=== PATIENT | female | born 1990 | race Caucasian/White ===

== ENCOUNTER 2020-12-26 19:21 | Emergency (ER) | payer BC ==
--- OUTSIDE RECORDS SUMMARY | 2020-12-26 19:25 | XMS REPORT | Continuity of Care Document ---
:1990 Author Organization [facility] t Address [address] [place] [address] Care Team Providers Name Role Phone Unavailable Unavailable Unavailable Payers Payer Name Policy Type Policy Number Effective Date Expiration Date S ource Problems This patient has no known problems. Allergies, Adverse Reactions, Alerts Allergy Allergy Status Severity Reaction(s) Onset Inactive Treating Comm ents Source Name Type Date Date Clinician clindamy DA Active [facility] des 1-20 Clear 00:00: [address] Medications This patient has no known medications. Procedures This patient has no known procedures. Results Test Description Test Time Test Comments Results Result Comments Source GLUCOSE BEDSIDE TESTING 2018-09-02 08:44:00 Test Item Value Reference Range Interpretation Comme nts GLUCOSE BEDSIDE TESTING (test code = GLUBED) 81 mg/dL 70-110 N COMPREHENSIVE METABOLIC [id number] 05:15:00 Test Item Value Reference Range Interpretation Comments SODIUM (test code = NA) 141 mmol/L 134-147 N POTASSIUM (test code = 3.8 mmol/L 3.4-5.0 N K) CHLORIDE (test code = 111 mmol/L 100-108 H CL) CARBON DIOXIDE (test 24 mmol/L 21-32 N code = CO2) ANION GAP (test code = 6.0 GAP calc 4.0-15.0 N GAP) GLUCOSE (test code = 122 MG/DL 70-110 H GLU) BLOOD UREA NITROGEN 10 MG/DL 7-18 N (test code = BUN) GLOMERULAR FILTRATION >=60 max estimate >60 RATE (test code = GFR) estGFR CREATININE (test code = 0.7 MG/DL 0.6-1.0 N CREAT) TOTAL PROTEIN (test code 6.1 G/DL 6.4-8.2 L = PROT) ALBUMIN (test code = 3.0 G/DL 3.4-5.0 L ALB) GLOBULIN (test code = 3.1 GM/dL GLOB) ALBUMIN/GLOBULIN RATIO 1.0 RATIO 1.2-2.2 L (test code = A/G) CALCIUM (test code = CA) 7.6 MG/DL 8.5-10.1 L BILIRUBIN TOTAL (test <0.10 MG/DL 0.2-1.2 L code = BILT) SGOT/AST (test code = 5 Unit/L 15-37 L AST) SGPT/ALT (test code = 22 Unit/L 12-78 N ALT) ALKALINE PHOSPHATASE 75 Unit/L 45-117 N TOTAL (test code = ALKP) [id number] 05:15:00 Test Item Value Reference Range Interpretation Comments PHOSPHOROUS (test code = PHOS) 3.2 MG/DL 2.5-4.9 N [id number] 05:15:00 Test Item Value Reference Range Interpretation Comments MAGNESIUM (test code = MAG) 1.8 MG/DL 1.8-2.4 N CBC W/AUTO [id number] 05:09:00 Test Item Value Reference Range Interpretation Comments WHITE BLOOD CELL (test code = 10.3 K/mm3 3.5-11.0 N WBC) RED BLOOD CELL (test code = RBC) 4.24 M/mm3 4.70-6.10 L HEMOGLOBIN (test code = HGB) 11.7 G/DL 10.4-14.9 N HEMATOCRIT (test code = HCT) 35.8 % 31.5-44.1 N MEAN CELL VOLUME (test code = 84.4 Fl 84.5-98.6 L MCV) MEAN CELL HGB (test code = MCH) 27.6 pg 27.0-34.2 N MEAN CELL HGB CONCETRATION (test 32.7 G/DL 31.5-34.0 N code = MCHC) RED CELL DISTRIBUTION WIDTH (test 15.8 SD 11.5-14.5 H code = RDW) PLATELET COUNT (test code = PLT) 204.0 K/mm3 150-450 N MEAN PLATELET VOLUME (test code = 10.80 fL 7.0-10.5 H MPV) NEUTROPHIL % (test code = NT%) 43.1 % 40-76 LYMPHOCYTE % (test code = LY%) 48.2 % 20.5-51.1 N MONOCYTE % (test code = MO%) 7.1 % 1.7-9.3 N EOSINOPHIL % (test code = EO%) 1.5 % 0.0-6.0 N BASOPHIL % (test code = BA%) 0.1 % 0.0-2.0 N NEUTROPHIL # (test code = NT#) 4.42 K/mm3 1.8-7.6 N LYMPHOCYTE # (test code = LY#) 4.9 K/mm3 0.6-3.2 H MONOCYTE # (test code = MO#) 0.7 K/mm3 0.3-1.1 N EOSINOPHIL # (test code = EO#) 0.2 K/mm3 0.0-0.4 N BASOPHIL # (test code = BA#) 0.0 K/mm3 0.0-0.1 N MANUAL DIFF REQUIRED (test code = NO DIFF/SCN CRITERIA MDIFF) GLUCOSE BEDSIDE [id number] 20:48:00 Test Item Value Reference Range Interpretation Comments GLUCOSE BEDSIDE TESTING (test code 145 mg/dL 70-110 H = GLUBED) GLUCOSE BEDSIDE [id number] 12:21:00 Test Item Value Reference Range Interpretation Comments GLUCOSE BEDSIDE TESTING (test code = 94 mg/dL 70-110 N GLUBED) GLUCOSE BEDSIDE [id number] 08:33:00 Test Item Value Reference Range Interpretation Comments GLUCOSE BEDSIDE TESTING (test code 108 mg/dL 70-110 N = GLUBED) GLYCOSYLATED HEMOGLOBIN [id number] 05:51:00 Test Item Value Reference Range Interpretation Comments GLYCOSYLATED HEMOGLOBIN (HA1C) 5.9 % A1C 4.2-6.3 N (test code = GLYHGB) ESTIMATED AVERAGE GLUCOSE (test 123 MG/DLest code = EAG) CBC W/AUTO [id number] 05:43:00 Test Item Value Reference Range Interpretation Comments WHITE BLOOD CELL (test 14.6 K/mm3 3.5-11.0 H code = WBC) RED BLOOD CELL (test 4.37 M/mm3 4.70-6.10 L code = RBC) HEMOGLOBIN (test code 12.4 G/DL 10.4-14.9 N = HGB) HEMATOCRIT (test code 36.4 % 31.5-44.1 N = HCT) MEAN CELL VOLUME (test 83.3 Fl 84.5-98.6 L code = MCV) MEAN CELL HGB (test 28.4 pg 27.0-34.2 N code = MCH) MEAN CELL HGB 34.1 G/DL 31.5-34.0 H CONCETRATION (test code = MCHC) RED CELL DISTRIBUTION 15.1 SD 11.5-14.5 H WIDTH (test code = RDW) PLATELET COUNT (test 254.0 K/mm3 150-450 N code = PLT) MEAN PLATELET VOLUME 10.70 fL 7.0-10.5 H (test code = MPV) NEUTROPHIL % (test 78.1 % 40-76 H code = NT%) LYMPHOCYTE % (test 16.7 % 20.5-51.1 L code = LY%) MONOCYTE % (test code 5.1 % 1.7-9.3 N = MO%) EOSINOPHIL % (test 0.0 % 0.0-6.0 N code = EO%) BASOPHIL % (test code 0.1 % 0.0-2.0 N = BA%) NEUTROPHIL # (test 11.43 K/mm3 1.8-7.6 H code = NT#) LYMPHOCYTE # (test 2.4 K/mm3 0.6-3.2 N code = LY#) MONOCYTE # (test code 0.8 K/mm3 0.3-1.1 N = MO#) EOSINOPHIL # (test 0.0 K/mm3 0.0-0.4 N code = EO#) BASOPHIL # (test code 0.0 K/mm3 0.0-0.1 N = BA#) MANUAL DIFF REQUIRED NO DIFF/SCN CRITERIA SLIDE R PAOLAW (test code = MDIFF) CONSISTA NT WITH AUTO DIFFERENTIAL. COMPREHENSIVE METABOLIC [id number] 05:27:00 Test Item Value Reference Range Interpretation Comments SODIUM (test code = NA) 142 mmol/L 134-147 N POTASSIUM (test code = 4.0 mmol/L 3.4-5.0 N K) CHLORIDE (test code = 110 mmol/L 100-108 H CL) CARBON DIOXIDE (test 22 mmol/L 21-32 N code = CO2) ANION GAP (test code = 10.0 GAP calc 4.0-15.0 N GAP) GLUCOSE (test code = 143 MG/DL 70-110 H GLU) BLOOD UREA NITROGEN 7 MG/DL 7-18 N (test code = BUN) GLOMERULAR FILTRATION >=60 max estimate >60 RATE (test code = GFR) estGFR CREATININE (test code = 0.7 MG/DL 0.6-1.0 N CREAT) TOTAL PROTEIN (test code 6.7 G/DL 6.4-8.2 N = PROT) ALBUMIN (test code = 3.2 G/DL 3.4-5.0 L ALB) GLOBULIN (test code = 3.5 GM/dL GLOB) ALBUMIN/GLOBULIN RATIO 0.9 RATIO 1.2-2.2 L (test code = A/G) CALCIUM (test code = CA) 7.9 MG/DL 8.5-10.1 L BILIRUBIN TOTAL (test 0.20 MG/DL 0.2-1.2 N code = BILT) SGOT/AST (test code = 8 Unit/L 15-37 L AST) SGPT/ALT (test code = 29 Unit/L 12-78 N ALT) ALKALINE PHOSPHATASE 81 Unit/L 45-117 N TOTAL (test code = ALKP) LIPID PROFILE (CORONARY RISK)2018 05:27:00 Test Item Value Reference Range Interpretation Comments TRIGLYCERIDES (test code = TRIG) 89 MG/DL 0-150 N CHOLESTEROL (test code = CHOL) 147 MG/DL 133-200 N CHOLESTEROL/HDL RATIO (test code = 3.00 RATIO >0 CHOLHDL) HDL CHOLESTEROL (test code = HDL) 49 MG/DL 40-59 N NON-HDL CHOLESTEROL (test code = 98 mg/dL <130 NHDL) LIPOPROTEIN LDL (test code = LDL) 90 MG/DL 0-129 N LDL/HDL (test code = LDL/HDL) 1.83 Ratio 1.48-3.22 Avg N [id number] 05:27:00 Test Item Value Reference Range Interpretation Comments PHOSPHOROUS (test code = PHOS) 2.8 MG/DL 2.5-4.9 N RULE OUT NH [id number] 05:27:00 Test Item Value Reference Range Interpretation Comments CREATINE KINASE 49 Unit/L 26-192 N (CK) (test code = CK) TROPONIN-I (test < 0.015 NG/ML 0.000-0.045 N Negative: </= 0.045 code = TROPI) Positive: >/= 0.046 Correlation wit h serial results, other cardiac markers , and clinical findin gs is necessary to de termine the clinical significance of this result. Quantit ative results using different methodologies s hould not be compared to one another as nume rical results may eric yby method. [id number] 05:27:00 Test Item Value Reference Range Interpretation Comments LIPASE (test code = LIP) 109 Unit/L 114-286 L [id number] 05:27:00 Test Item Value Reference Range Interpretation Comments MAGNESIUM (test code = MAG) 2.0 MG/DL 1.8-2.4 N CBC W/AUTO [id number] 05:10:00 Test Item Value Reference Range Interpretation Comments WHITE BLOOD CELL (test code = 14.6 K/mm3 3.5-11.0 H WBC) RED BLOOD CELL (test code = RBC) 4.37 M/mm3 4.70-6.10 L HEMOGLOBIN (test code = HGB) 12.4 G/DL 10.4-14.9 N HEMATOCRIT (test code = HCT) 36.4 % 31.5-44.1 N MEAN CELL VOLUME (test code = 83.3 Fl 84.5-98.6 L MCV) MEAN CELL HGB (test code = MCH) 28.4 pg 27.0-34.2 N MEAN CELL HGB CONCETRATION (test 34.1 G/DL 31.5-34.0 H code = MCHC) RED CELL DISTRIBUTION WIDTH (test 15.1 SD 11.5-14.5 H code = RDW) PLATELET COUNT (test code = PLT) 254.0 K/mm3 150-450 N MEAN PLATELET VOLUME (test code = 10.70 fL 7.0-10.5 H MPV) NEUTROPHIL % (test code = NT%) 78.1 % 40-76 H LYMPHOCYTE % (test code = LY%) 16.7 % 20.5-51.1 L MONOCYTE % (test code = MO%) 5.1 % 1.7-9.3 N EOSINOPHIL % (test code = EO%) 0.0 % 0.0-6.0 N BASOPHIL % (test code = BA%) 0.1 % 0.0-2.0 N NEUTROPHIL # (test code = NT#) 11.43 K/mm3 1.8-7.6 H LYMPHOCYTE # (test code = LY#) 2.4 K/mm3 0.6-3.2 N MONOCYTE # (test code = MO#) 0.8 K/mm3 0.3-1.1 N EOSINOPHIL # (test code = EO#) 0.0 K/mm3 0.0-0.4 N BASOPHIL # (test code = BA#) 0.0 K/mm3 0.0-0.1 N MANUAL DIFF REQUIRED (test code = DIFF/SCN CRITERIA MDIFF)
[2020-12-26 22:30] LABS: Urine Blood Negative (Negative); Urine Glucose Negative (Negative); Urine Protein Negative (Negative); Urine Specific Gravity >=1.030 (1.005-1.030)
[2020-12-26 23:49] LABS: BUN Blood Urea Nitrogen 9 mg/dL (7-18); Bicarbonate 23 mmol/L (21-32); Glucose Level 85 mg/dL (74-106); HCG, Quantitative 11732 mIU/mL (1-3); Potassium 3.6 mmol/L (3.5-5.1); Sodium Level 137 mmol/L (136-145)
[2020-12-27 00:03] LABS: Absolute Lymphocytes (CBC) 3.9 K/uL (0.7-4.9); Basophils % 0.3 % (0-1.3); Hematocrit 38.2 % (36.0-45.0); Lymphocytes % 37.3 % (15.3-44.8); MPV 9.6 fL (7.6-11.3); RBC Red Blood Cell Count 4.42 M/uL (3.86-4.86)
[2020-12-27 00:41] LABS: Urine Specific Gravity/Preg >1.030 (1.005-1.030)
--- NOTE | 2020-12-27 01:50 | ER ---
Nurse's Notes [facility] Name: Rasheeda Wilburn Age: 30 yrs Sex: Female : 1990 Arrival Date: 12/26/2020 Time: 19:23 Bed 13 Private MD: Diagnosis: ! st trimester intrauterine . Low back pain Presentation: 12/26 19:30 Chief complaint: Patient states: Had US Sunday12/24/2020. It says I had a gestational ca1 sac but no pole, gestational age undetermined. this morning, I started having sharp pain on the R lower back. Called my OB and he told me that he wanted me to get checked out for a concern of ectopic . Coronavirus screen: Client denies travel out of the [place] in the last 14 days. At this time, the client does not indicate any symptoms associated with coronavirus-19. Ebola Screen: Patient negative for fever greater than or equal to 101.5 degrees Fahrenheit, and additional compatible Ebola Virus Disease symptoms Patient denies exposure to infectious person. Patient denies travel to an Ebola-affected area in the 21 days before illness onset. No symptoms or risks identified at this time. Initial Sepsis Screen: Does the patient meet any 2 criteria? No. Patient's initial sepsis screen is negative. Does the patient have a suspected source of infection? No. Patient's initial sepsis screen is negative. Risk Assessment: Do you want to hurt yourself or someone else? Patient reports no desire to harm self or others. Onset of symptoms was December 26, 2020. 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 - Social history:: Smoking status: Patient denies any tobacco usage or history of. Screenin:15 Abuse screen: Denies threats or abuse. Denies injuries from another. Nutritional aj1 screening: No deficits noted. Tuberculosis screening: No symptoms or risk factors identified. 12/27 02:07 Fall Risk None identified. aj1 Assessment: 12/26 21:15 General: Appears in no apparent distress. uncomfortable, Behavior is calm, cooperative, aj1 appropriate for age. Pain: Complains of pain in right low back Pain does not radiate. Pain currently is 8 out of 10 on a pain scale. Quality of pain is described as aching, sharp, Is continuous. Neuro: Level of Consciousness is awake, alert, obeys commands, Oriented to person, place, time, situation. Cardiovascular: Patient's skin is warm and dry. Respiratory: Airway is patent Respiratory effort is even, unlabored, Respiratory pattern is regular, symmetrical. GI: Patient currently denies abdominal pain. : Denies vaginal bleeding. EENT: No signs and/or symptoms were reported regarding the EENT system. Derm: No signs and/or symptoms reported regarding the dermatologic system. Skin is pink, warm \T\ dry. normal. Musculoskeletal: No signs and/or symptoms reported regarding the musculoskeletal system. Circulation, motion, and sensation intact. 21:45 Reassessment: US at bedside, will do blood work as soon as ultrasound exam is complete. aj1 22:34 Reassessment: Patient appears in no apparent distress at this time. No changes from aj1 previously documented assessment. Patient and/or family updated on plan of care and expected duration. Pain level reassessed. Patient is alert, oriented x 3, equal unlabored respirations, skin warm/dry/pink. 23:35 Reassessment: Patient appears in no apparent distress at this time. No changes from aj1 previously documented assessment. Patient and/or family updated on plan of care and expected duration. Pain level reassessed. Patient is alert, oriented x 3, equal unlabored respirations, skin warm/dry/pink. 12/27 00:35 Reassessment: Patient appears in no apparent distress at this time. No changes from aj1 previously documented assessment. Patient and/or family updated on plan of care and expected duration. Pain level reassessed. Patient is alert, oriented x 3, equal unlabored respirations, skin warm/dry/pink. 01:35 Reassessment: Patient appears in no apparent distress at this time. No changes from aj1 previously documented assessment. Patient and/or family updated on plan of care and expected duration. Pain level reassessed. Patient is alert, oriented x 3, equal unlabored respirations, skin warm/dry/pink. Vital Signs: 12/26 19:30 BP 141 / 87; Pulse 91; Resp 16 S; Temp 97.3(TE); Pulse Ox 100% on R/A; Weight 117.93 kg ca1 (R); Height 5 ft. 0 in. (152.40 cm) (R); Pain 6/10; 23:54 BP 132 / 75; Pulse 88; Resp 18; Pulse Ox 99% on R/A; aj1 19:30 Body Mass Index 50.78 (117.93 kg, 152.40 cm) ca1 ED Course: 19:23 Patient arrived in ED. am4 19:34 Triage completed. ca1 19:34 Arm band placed on right wrist. ca1 21:15 Patient has correct armband on for positive identification. Bed in low position. Call aj1 light in reach. 21:15 No provider procedures requiring assistance completed. aj1 21:26 Jose Novak MD is Attending Physician. pkl 21:52 Jasmin Reed RN is Primary Nurse. aj1 22:21 US Transvaginal Ob In Process Unspecified. EDMS 22:24 Ultrasound completed. Patient tolerated well. Notified ED Physician veronique. sg3 22:33 Initial lab(s) drawn, by me, sent to lab. aj1 12/27 01:49 Ariel Suarez MD is Referral Physician. pkl 02:07 Patient did not have IV access during this emergency room visit. aj1 Administered Medications: 02:06 Drug: Tylenol 1000 mg Route: PO; aj1 02:06 Follow up: Response: No adverse reaction aj1 Outcome: 01:50 Discharge ordered by . pkl 02:07 Discharged to home ambulatory. aj1 02:07 Condition: good 02:07 Discharge instructions given to patient, Instructed on discharge instructions, follow up and referral plans. Demonstrated understanding of instructions, follow-up care. 02:08 Patient left the ED. aj1 Signatures: Dispatcher [employer] EDMS Jasmin Reed RN RN aj1 Jose Novak MD MD pkl Blanka Luke sg3 Yola Stewart RN RN ca1 Ernestine Braxton am4
--- NOTE | 2020-12-27 01:50 | EDPHYS ---
Physician Documentation [facility] Name: Rasheeda Wilburn Age: 30 yrs Sex: Female : 1990 Arrival Date: 12/26/2020 Time: 19:23 Bed 13 Private MD: ED Physician Jose Novak HPI: 12/26 21:37 This 30 yrs old Female presents to ER via Ambulatory with complaints of pkl Possible ectopic . 21:37 The patient presents with pelvic pain, that is located in/on the lower abdomen and pkl back. Onset: The symptoms/episode began/occurred 3 day(s) ago. Had pelvic US done 12/24/20 showed gestation sac but no pole. Patient talked to Dr. Erick morin, was told to come to ER to R/O ectopic . 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 - Social history:: Smoking status: Patient denies any tobacco usage or history of. ROS: 21:37 Positive for pelvic pain, back pain, Negative for vaginal bleeding. pkl 21:37 Eyes: Negative for injury, pain, redness, and discharge, ENT: Negative for injury, pain, and discharge, Neck: Negative for injury, pain, and swelling, Cardiovascular: Negative for chest pain, palpitations, and edema, Respiratory: Negative for shortness of breath, cough, wheezing, and pleuritic chest pain. 21:37 Abdomen/GI: Positive for abdominal pain, of the suprapubic area. 21:37 Back: Positive for of the low back pain. 21:37 MS/extremity: Negative for acute changes. 21:37 Skin: Negative for rash. 21:37 Neuro: Negative for altered mental status. Exam: 21:37 Head/Face: Normocephalic, atraumatic. Eyes: Pupils equal round and reactive to light, pkl extra-ocular motions intact. Lids and lashes normal. Conjunctiva and sclera are non-icteric and not injected. Cornea within normal limits. Periorbital areas with no swelling, redness, or edema. ENT: Nares patent. No nasal discharge, no septal abnormalities noted. Tympanic membranes are normal and external auditory canals are clear. Oropharynx with no redness, swelling, or masses, exudates, or evidence of obstruction, uvula midline. Mucous membranes moist. Neck: Trachea midline, no thyromegaly or masses palpated, and no cervical lymphadenopathy. Supple, full range of motion without nuchal rigidity, or vertebral point tenderness. No Meningismus. Chest/axilla: Normal chest wall appearance and motion. Nontender with no deformity. No lesions are appreciated. Cardiovascular: Regular rate and rhythm with a normal S1 and S2. No gallops, murmurs, or rubs. Normal PMI, no JVD. No pulse deficits. Respiratory: Lungs have equal breath sounds bilaterally, clear to auscultation and percussion. No rales, rhonchi or wheezes noted. No increased work of breathing, no retractions or nasal flaring. Abdomen/GI: Soft, non-tender, with normal bowel sounds. No distension or tympany. No guarding or rebound. No evidence of tenderness throughout. Back: No spinal tenderness. No costovertebral tenderness. Full range of motion. 21:37 : Exam negative for Pelvic Exam: the exam is deferred. 21:37 Musculoskeletal/extremity: Exam is negative for acute changes. 21:37 Skin: Exam negative for rash. 21:37 Neuro: Orientation: is normal, Mentation: is normal, Cranial nerves: grossly normal, Motor: is normal. Vital Signs: 19:30 BP 141 / 87; Pulse 91; Resp 16 S; Temp 97.3(TE); Pulse Ox 100% on R/A; Weight 117.93 kg ca1 (R); Height 5 ft. 0 in. (152.40 cm) (R); Pain 6/10; 23:54 BP 132 / 75; Pulse 88; Resp 18; Pulse Ox 99% on R/A; aj1 19:30 Body Mass Index 50.78 (117.93 kg, 152.40 cm) ca1 MDM: 21:26 Patient medically screened. pkl 12/27 01:45 Data reviewed: vital signs, nurses notes, lab test result(s), radiologic studies, pkl ultrasound. ED course: Discussed lab and US results with patent. Advised to follow up in 1 to 2 days. Patient understood instructions. 12/26 21:36 Order name: Abo/rh Typing; Complete Time: :44 pkl 12/26 21:36 Order name: Basic Metabolic Panel; Complete Time: :44 pkl 12/26 21:36 Order name: CBC with Diff; Complete Time: 44 pkl 12/26 21:36 Order name: HCG-Quantitative; Complete Time: :44 pkl 12/26 22:29 Order name: Urine Dipstick-Ancillary EDMS 12/26 21:36 Order name: IV Saline Lock; Complete Time: 22:33 pkl 12/26 21:36 Order name: Labs collected and sent; Complete Time: 22:33 pkl 12/26 21:36 Order name: NPO; Complete Time: 22:33 pkl 12/26 21:36 Order name: Urine Dipstick-Ancillary (obtain specimen); Complete Time: 22:33 pkl 12/26 21:36 Order name: US Transvaginal Ob pkl 12/26 23:48 Order name: Urine --Ancillary (enter results); Complete Time: :44 mw2 Administered Medications: 02:06 Drug: Tylenol 1000 mg Route: PO; aj1 02:06 Follow up: Response: No adverse reaction aj1 Disposition: 12/27/20 01:50 Discharged to Home. Impression: ! st trimester intrauterine . Low back pain. - Condition is Stable. - Medication Reconciliation Form, Thank You Letter, Antibiotic Education, Prescription Opioid Use form. - Follow up: Ariel Suarez MD; When: 1 - 2 days; Reason: Re-evaluation by your physician. - Problem is new. - Symptoms have improved. Signatures: Dispatcher [employer] EDJasmin Zapata RN RN aj1 Jose Novak MD MD pkl Acob, Cheryl, RN RN ca1 Corrections: (The following items were deleted from the chart) 12/26 23:48 22:41 URINE --ANCILLARY+UC.LAB.BRZ ordered. EDMS EDMS 23:48 23:46 URINE --ANCILLARY+UC.LAB.BRZ reviewed. pkl EDMS 12/27 02:08 01:50 12/27/2020 01:50 Discharged to Home. Impression: ! st trimester intrauterine aj1 . Low back pain. Condition is Stable. Forms are Medication Reconciliation Form, Thank You Letter, Antibiotic Education, Prescription Opioid Use. Follow up: Ariel Suarez; When: 1 - 2 days; Reason: Re-evaluation by your physician. Problem is new. Symptoms have improved. pkl
[2020-12-27] MEDS ORDERED: ACETAMINOPHEN 500 MG TAB ONE (02:17)
[2020-12-27 02:52] VITALS: BP 132/75; O2SAT 99
[2020-12-27 03:00] VITALS: TEMP 97.3
--- NOTE | 2020-12-27 11:09 | RAD REPORT ---
EXAM DESCRIPTION: US - Transvaginal OB - 12/26/2020 10:22 pm CLINICAL HISTORY: with pelvic pain COMPARISON: December 24, 2020 FINDINGS: The uterus 12 x 6 x 5 centimeters. A gestational sac is present within the endometrium. W ithin this is an embryo with a crown-rump length 4 millimeters. Cardiac activity 80 beats per minute. A 4 x 1 centimeter subchorionic bleed The right ovary is normal in size and echotexture. The left ovary was not visualized secondary to ove rlying bowel gas. The right and left adnexum unremarkable.. No significant free fluid IMPRESSION: Single live intrauterine with an estimated gestational age 6 weeks 1 day JONO 0 08/20/2021 Cardiac activity is diminished at 80 beats per minute. 4 x 1 centimeter subchorionic bleed
== END 2020-12-27 02:08 | disposition home or self-care (01) ==
LOC: ER 19:21
DX: O99.891 Other specified diseases and conditions complicating pregnancy (principal); R10.2 Pelvic and perineal pain; M54.5 Low back pain; Z3A.01 Less than 8 weeks gestation of pregnancy; O99.281 Endocrine, nutritional and metabolic diseases complicating pregnancy, first trimester; E28.2 Polycystic ovarian syndrome
CPT/HCPCS: 36415; 76817; 80048; 81003; 81025; 84702; 85025; 86900; 86901; 99283

== ENCOUNTER 2021-02-04 21:20 | Emergency (ER) | payer BC ==
--- OUTSIDE RECORDS SUMMARY | 2021-02-04 21:23 | XMS REPORT | Continuity of Care Document ---
:1990 Author Organization [facility] t Address [address] [place] [address] Care Team Providers Name Role Phone Unavailable Unavailable Unavailable Payers Payer Name Policy Type Policy Number Effective Date Expiration Date S ource Problems This patient has no known problems. Allergies, Adverse Reactions, Alerts Allergy Allergy Status Severity Reaction(s) Onset Inactive Treating Comm ents Source Name Type Date Date Clinician clindamy DA Active [facility] des 1-20 Clear 00:00: [address] Medications This patient has no known medications. Procedures This patient has no known procedures. Results Test Description Test Time Test Comments Results Result Comments Source GLUCOSE BEDSIDE TESTING 2018-09-02 08:44:00 Test Item Value Reference Range Interpretation Comme nts GLUCOSE BEDSIDE TESTING (test code = GLUBED) 81 mg/dL 70-110 N COMPREHENSIVE METABOLIC [id number] 05:15:00 Test Item Value Reference Range Interpretation [...] 45-117 N TOTAL (test code = ALKP) [id number] 05:15:00 Test Item Value Reference Range Interpretation Comments PHOSPHOROUS (test code = PHOS) 3.2 MG/DL 2.5-4.9 N [id number] 05:15:00 Test Item Value Reference Range Interpretation Comments MAGNESIUM (test code = MAG) 1.8 MG/DL 1.8-2.4 N CBC W/AUTO [id number] 05:09:00 Test Item Value Reference Range Interpretation [...] = NO DIFF/SCN CRITERIA MDIFF) GLUCOSE BEDSIDE [id number] 20:48:00 Test Item Value Reference Range Interpretation Comments GLUCOSE BEDSIDE TESTING (test code 145 mg/dL 70-110 H = GLUBED) GLUCOSE BEDSIDE [id number] 12:21:00 Test Item Value Reference Range Interpretation Comments GLUCOSE BEDSIDE TESTING (test code = 94 mg/dL 70-110 N GLUBED) GLUCOSE BEDSIDE [id number] 08:33:00 Test Item Value Reference Range Interpretation Comments GLUCOSE BEDSIDE TESTING (test code 108 mg/dL 70-110 N = GLUBED) GLYCOSYLATED HEMOGLOBIN [id number] 05:51:00 Test Item Value Reference Range Interpretation Comments GLYCOSYLATED HEMOGLOBIN (HA1C) 5.9 % A1C 4.2-6.3 N (test code = GLYHGB) ESTIMATED AVERAGE GLUCOSE (test 123 MG/DLest code = EAG) CBC W/AUTO [id number] 05:43:00 Test Item Value Reference Range Interpretation [...] CONSISTA NT WITH AUTO DIFFERENTIAL. COMPREHENSIVE METABOLIC [id number] 05:27:00 Test Item Value Reference Range Interpretation [...] = LDL/HDL) 1.83 Ratio 1.48-3.22 Avg N [id number] 05:27:00 Test Item Value Reference Range Interpretation Comments PHOSPHOROUS (test code = PHOS) 2.8 MG/DL 2.5-4.9 N RULE OUT VA [id number] 05:27:00 Test Item Value Reference Range Interpretation [...] nume rical results may eric yby method. [id number] 05:27:00 Test Item Value Reference Range Interpretation Comments LIPASE (test code = LIP) 109 Unit/L 114-286 L [id number] 05:27:00 Test Item Value Reference Range Interpretation Comments MAGNESIUM (test code = MAG) 2.0 MG/DL 1.8-2.4 N CBC W/AUTO [id number] 05:10:00 Test Item Value Reference Range Interpretation [...]
[2021-02-05] MEDS ORDERED: ONDANSETRON 4 MG/2 ML VIAL ONE (00:56)
[2021-02-05] MEDS ORDERED: FAMOTIDINE 20 MG/2 ML VIAL IV ONE (00:57)
[2021-02-05] MEDS ORDERED: NA CHLORIDE 0.9% 1,000 ML ONE (00:57)
[2021-02-05 00:58] LABS: Absolute Lymphocytes (CBC) 3.5 K/uL (0.7-4.9); Basophils % 0.3 % (0-1.3); Hematocrit 34.4 % (36.0-45.0); Lymphocytes % 29.3 % (15.3-44.8); MPV 9.2 fL (7.6-11.3); RBC Red Blood Cell Count 4.01 M/uL (3.86-4.86)
[2021-02-05 01:29] LABS: ALT/SGPT 18 U/L (12-78); AST/SGOT 7 U/L (15-37); Alkaline Phosphatase 47 U/L (45-117); BUN Blood Urea Nitrogen 6 mg/dL (7-18); Bicarbonate 24 mmol/L (21-32); Bilirubin Direct < 0.1 mg/dL (0-0.2); Bilirubin Total 0.3 mg/dL (0.2-1.0); Glucose Level 106 mg/dL (74-106); HCG, Quantitative 47461 mIU/mL (1-3); Lipase 84 U/L (73-393); Potassium 3.7 mmol/L (3.5-5.1); Protein, Total 6.7 g/dL (6.4-8.2); Sodium Level 138 mmol/L (136-145)
[2021-02-05 01:32] LABS: Urine Blood Negative (Negative); Urine Glucose Negative (Negative); Urine Protein Trace (Negative); Urine Specific Gravity 1.025 (1.005-1.030); Urine pH 5.5 (5.0-7.0)
[2021-02-05] MEDS ORDERED: ACETAMINOPHEN 500 MG TAB ONE (03:39)
--- NOTE | 2021-02-05 04:09 | ER ---
Nurse's Notes [facility] Name: Rasheeda Wilburn Age: 30 yrs Sex: Female : 1990 Arrival Date: 02/04/2021 Time: 21:22 Bed 24 Private MD: Shawn Blackwell B Diagnosis: Nausea with vomiting, unspecified; related conditions, unspecified, first trimester Presentation: 02/04 21:31 Chief complaint: Patient states: 12 weeks, been vomiting all day today, with ca1 streaks of blood. Coronavirus screen: Client denies travel out of the [place] in the last 14 days. vomiting. Client presents with at least one sign or symptom that may indicate coronavirus-19. Standard/surgical mask placed on the client. Provider contacted for isolation considerations. Ebola Screen: Patient negative for fever greater than or equal to 101.5 degrees Fahrenheit, and additional compatible Ebola Virus Disease symptoms Patient denies exposure to infectious person. Patient denies travel to an Ebola-affected area in the 21 days before illness onset. No symptoms or risks identified at this time. Initial Sepsis Screen: Does the patient meet any 2 criteria? No. Patient's initial sepsis screen is negative. Does the patient have a suspected source of infection? No. Patient's initial sepsis screen is negative. Risk Assessment: Do you want to hurt yourself or someone else? Patient reports no desire to harm self or others. Onset of symptoms was February 04, 2021. 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 - Social history:: Smoking status: Patient denies any tobacco usage or history of. Screenin/26 00:00 Abuse screen: Denies threats or abuse. Nutritional screening: No deficits noted. em Tuberculosis screening: No symptoms or risk factors identified. Fall Risk None identified. Assessment: 02/04 23:30 General: Appears in no apparent distress. comfortable, Behavior is calm, cooperative, em appropriate for age. Pain: Denies pain. Neuro: Level of Consciousness is awake, alert, obeys commands, Oriented to person, place, time, situation. Cardiovascular: Capillary refill < 3 seconds Patient's skin is warm and dry. Respiratory: Airway is patent Respiratory effort is even, unlabored, Respiratory pattern is regular, symmetrical. GI: Abdomen is round non-distended, Reports nausea, vomiting. Derm: Skin is intact, is healthy with good turgor, Skin is pink, warm \T\ dry. Musculoskeletal: Capillary refill < 3 seconds, Range of motion: intact in all extremities. 02/05 00:40 Reassessment: Patient appears in no apparent distress at this time. Patient and/or em family updated on plan of care and expected duration. Pain level reassessed. Patient is alert, oriented x 3, equal unlabored respirations, skin warm/dry/pink. 02:08 Reassessment: Patient appears in no apparent distress at this time. Patient and/or em family updated on plan of care and expected duration. Pain level reassessed. Patient is alert, oriented x 3, equal unlabored respirations, skin warm/dry/pink. 03:34 Reassessment: given crackers for hunger pains, reports improvement with crackers, em nausea is there but has improved. Vital Signs: 02/04 21:31 BP 133 / 98; Pulse 88; Resp 17 S; Temp 98.2(TE); Pulse Ox 100% on R/A; Weight 120.2 kg ca1 (R); Height 5 ft. 0 in. (152.40 cm) (R); Pain 5/10; 02/05 01:16 BP 132 / 87; Pulse 74; Resp 17; Pulse Ox 100% on R/A; mh5 02:09 BP 128 / 75; Pulse 67; Resp 16; Pulse Ox 99% on R/A; em 03:35 BP 124 / 68; Pulse 81; Resp 19; Temp 97.8; Pulse Ox 98% on R/A; em 02/04 21:31 Body Mass Index 51.75 (120.20 kg, 152.40 cm) ca1 Vitals: 01:16 Heart Tones: 140. mh5 ED Course: 06/25 21:22 Patient arrived in ED. es 21:22 Shawn Blackwell MD is Private Physician. es 21:33 Triage completed. ca1 21:33 Arm band placed on right wrist. ca1 23:35 Azam Anne, RN is Primary Nurse. fu 23:51 Jassi Monet MD is Attending Physician. 7 02/05 01:17 Patient has correct armband on for positive identification. Bed in low position. Call 5 light in reach. Side rails up X 1. Warm blanket given. Pulse ox on. NIBP on. 01:17 Initial lab(s) drawn, by ED staff, sent to lab. Inserted saline lock: 20 gauge in right mh5 Blood collected. 04:15 No provider procedures requiring assistance completed. IV discontinued, intact, em bleeding controlled, No redness/swelling at site. Pressure dressing applied. Administered Medications: 00:40 Drug: NS 0.9% 1000 ml Route: IV; Rate: 1000 ml; Site: right antecubital; em 02:39 Follow up: IV Status: Completed infusion; IV Intake: 1000ml rr5 00:40 Drug: Pepcid (famotidine) 20 mg Route: IVP; Site: right antecubital; em 02:39 Follow up: Response: No adverse reaction rr5 00:43 Drug: Zofran (Ondansetron) 4 mg Route: IVP; Site: right antecubital; em 02:39 Follow up: Response: No adverse reaction; Marked relief of symptoms; Nausea is decreasedrr5 03:22 Drug: Tylenol 1000 mg Route: PO; rr5 04:18 Follow up: Response: No adverse reaction; Marked relief of symptoms; Pain is decreased em Intake: 02:39 IV: 1000ml; Total: 1000ml. rr5 Outcome: 04:08 Discharge ordered by . [facility] 04:15 Discharged to home ambulatory. em 04:15 Condition: improved 04:15 Discharge instructions given to patient, Instructed on discharge instructions, follow up and referral plans. medication usage, Demonstrated understanding of instructions, follow-up care, medications, Prescriptions given X 2. 04:18 Patient left the ED. em Signatures: Vilma Howe Edgar, RN RN Emily Braxton [facility] Azam Anne, RENETTA JACKSON Mateus Donnelly RN RN rr5 Yola Stewart RN RN [facility] Jassi Monet MD MD mh7
--- NOTE | 2021-02-05 04:09 | EDPHYS ---
Physician Documentation [facility] Name: Rasheeda Wilburn Age: 30 yrs Sex: Female : 1990 Arrival Date: 02/04/2021 Time: 21:22 Bed 24 Private MD: Shawn Blackwell B ED Physician Jassi Monet HPI: 02/05 00:16 This 30 yrs old Female presents to ER via Ambulatory with complaints of mh7 Vomiting, 12wks preg. 00:16 The patient presents to the emergency department with nausea, that is moderate, mh7 vomiting, that is intermittent, described as blood streaked, clear fluid. Onset: The symptoms/episode began/occurred today, intermittent for 6 weeks. Possible causes: . The symptoms are aggravated by food , The symptoms are alleviated by nothing. Associated signs and symptoms: Pertinent negatives: abdominal pain, anorexia, belching, constipation, diarrhea, dysuria, fever, flatulence, hematuria, vaginal discharge. Severity of symptoms: At their worst the symptoms were moderate today, in the emergency department the symptoms have improved moderately. States nausea, vomiting intermittent for 6 weeks and is 12 weeks . Reports one episode of blood streak in emesis today. She is not currently taking any nausea medication.. 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 - Social history:: Smoking status: Patient denies any tobacco usage or history of. ROS: 02/05 00:16 Constitutional: Negative for fever, chills, and weight loss, Eyes: Negative for injury, mh7 pain, redness, and discharge, ENT: Negative for injury, pain, and discharge, Neck: Negative for injury, pain, and swelling, Cardiovascular: Negative for chest pain, palpitations, and edema, Respiratory: Negative for shortness of breath, cough, wheezing, and pleuritic chest pain, Back: Negative for injury and pain, : Negative for injury, bleeding, discharge, and swelling, MS/Extremity: Negative for injury and deformity, Skin: Negative for injury, rash, and discoloration, Neuro: Negative for headache, weakness, numbness, tingling, and seizure, Psych: Negative for depression, anxiety, suicide ideation, homicidal ideation, and hallucinations, Allergy/Immunology: Negative for hives, rash, and allergies, Endocrine: Negative for neck swelling, polydipsia, polyuria, polyphagia, and marked weight changes, Hematologic/Lymphatic: Negative for swollen nodes, abnormal bleeding, and unusual bruising. Exam: 00:16 Constitutional: This is a well developed, well nourished patient who is awake, alert, mh7 and in no acute distress. Head/Face: Normocephalic, atraumatic. Eyes: Pupils equal round and reactive to light, extra-ocular motions intact. Lids and lashes normal. Conjunctiva and sclera are non-icteric and not injected. Cornea within normal limits. Periorbital areas with no swelling, redness, or edema. Neck: Trachea midline, no thyromegaly or masses palpated, and no cervical lymphadenopathy. Supple, full range of motion without nuchal rigidity, or vertebral point tenderness. No Meningismus. Chest/axilla: Normal chest wall appearance and motion. Nontender with no deformity. No lesions are appreciated. Cardiovascular: Regular rate and rhythm with a normal S1 and S2. No gallops, murmurs, or rubs. Normal PMI, no JVD. No pulse deficits. Respiratory: Lungs have equal breath sounds bilaterally, clear to auscultation and percussion. No rales, rhonchi or wheezes noted. No increased work of breathing, no retractions or nasal flaring. Abdomen/GI: Soft, non-tender, with normal bowel sounds. No distension or tympany. No guarding or rebound. No evidence of tenderness throughout. Back: No spinal tenderness. No costovertebral tenderness. Full range of motion. Skin: Warm, dry with normal turgor. Normal color with no rashes, no lesions, and no evidence of cellulitis. MS/ Extremity: Pulses equal, no cyanosis. Neurovascular intact. Full, normal range of motion. Neuro: Awake and alert, GCS 15, oriented to person, place, time, and situation. Cranial nerves II-XII grossly intact. Motor strength 5/5 in all extremities. Sensory grossly intact. Cerebellar exam normal. Normal gait. Psych: Awake, alert, with orientation to person, place and time. Behavior, mood, and affect are within normal limits. Vital Signs: 02/04 21:31 BP 133 / 98; Pulse 88; Resp 17 S; Temp 98.2(TE); Pulse Ox 100% on R/A; Weight 120.2 kg ca1 (R); Height 5 ft. 0 in. (152.40 cm) (R); Pain 5/10; 02/05 01:16 BP 132 / 87; Pulse 74; Resp 17; Pulse Ox 100% on R/A; mh5 02:09 BP 128 / 75; Pulse 67; Resp 16; Pulse Ox 99% on R/A; em 03:35 BP 124 / 68; Pulse 81; Resp 19; Temp 97.8; Pulse Ox 98% on R/A; em 02/04 21:31 Body Mass Index 51.75 (120.20 kg, 152.40 cm) ca1 MDM: 04:06 Differential diagnosis: gastritis, pancreatitis, viral gastroenteritis, mh7 gastroenteritis. Data reviewed: vital signs, nurses notes, lab test result(s), CBC, electrolytes, urinalysis. Counseling: I had a detailed discussion with the patient and/or guardian regarding: the historical points, exam findings, and any diagnostic results supporting the discharge/admit diagnosis, lab results, the need for outpatient follow up, to return to the emergency department if symptoms worsen or persist or if there are any questions or concerns that arise at home. Response to treatment: the patient's symptoms have resolved after treatment, the patient's blood pressure is in an acceptable range, mental status has returned to baseline, the patient no longer shows bradycardia, the patient is not short of breath, the patient is not tachycardic, the patient's pain is gone, the patient's temperature has normalized. 04:08 Patient medically screened. [facility] 02/05 00:00 Order name: CBC with Diff; Complete Time: [facility] 02/05 00:00 Order name: Basic Metabolic Panel; Complete Time: : [facility] 02/05 00:00 Order name: LFT's; Complete Time: [facility] 02/05 00:00 Order name: Quantitative Hcg; Complete Time: : [facility] 02/05 00:00 Order name: Lipase; Complete Time: 02: [facility] 02/05 01:32 Order name: Urine Dipstick-Ancillary; Complete Time: [facility] 02/05 00:00 Order name: Urine Dipstick-Ancillary (obtain specimen); Complete Time: 01: [facility] 02/05 00:00 Order name: Heart Tones; Complete Time: 00:03 7 Administered Medications: 00:40 Drug: NS 0.9% 1000 ml Route: IV; Rate: 1000 ml; Site: right antecubital; em 02:39 Follow up: IV Status: Completed infusion; IV Intake: 1000ml rr5 00:40 Drug: Pepcid (famotidine) 20 mg Route: IVP; Site: right antecubital; em 02:39 Follow up: Response: No adverse reaction rr5 00:43 Drug: Zofran (Ondansetron) 4 mg Route: IVP; Site: right antecubital; em 02:39 Follow up: Response: No adverse reaction; Marked relief of symptoms; Nausea is decreasedrr5 03:22 Drug: Tylenol 1000 mg Route: PO; rr5 04:18 Follow up: Response: No adverse reaction; Marked relief of symptoms; Pain is decreased em Disposition: 02/05/21 04:08 Discharged to Home. Impression: Nausea with vomiting, unspecified, related conditions, unspecified, first trimester. - Condition is Stable. - Discharge Instructions: Nausea and Vomiting, Adult, [id number]. - Prescriptions for ondansetron 4 mg Oral tablet,disintegrating - place 1 tablet by TRANSLINGUAL route every 8 hours As needed; 10 tablet. Pepcid 20 mg Oral Tablet - take 1 tablet by ORAL route every 12 hours for 5 days; 10 tablet. - Medication Reconciliation Form, Thank You Letter, Antibiotic Education, Prescription Opioid Use form. - Follow up: Private Physician; When: 1 - 2 days; Reason: Worsening of condition, Recheck today's complaints, Continuance of care, Re-evaluation by your physician. - Problem is an ongoing problem. - Symptoms have improved. Signatures: Dispatcher [employer] Delroy Arzola RN RN em Roque, Raymond, RN RN rr5 Yola Stewart RN RN [facility] Jassi Monet MD MD 7 Corrections: (The following items were deleted from the chart) 04:18 04:08 02/05/2021 04:08 Discharged to Home. Impression: Nausea with vomiting, em unspecified; related conditions, unspecified, first trimester. Condition is Stable. Forms are Medication Reconciliation Form, Thank You Letter, Antibiotic Education, Prescription Opioid Use. Follow up: Private Physician; When: 1 - 2 days; Reason: Worsening of condition, Recheck today's complaints, Continuance of care, Re-evaluation by your physician. Problem is an ongoing problem. Symptoms have improved. mh7
[2021-02-05 04:53] VITALS: BP 124/68; TEMP 97.8; O2SAT 98
== END 2021-02-05 04:18 | disposition home or self-care (01) ==
LOC: ER 21:20
DX: O21.9 Vomiting of pregnancy, unspecified (principal); Z3A.12 12 weeks gestation of pregnancy; Z88.1 Allergy status to other antibiotic agents
CPT/HCPCS: 85025; 80048; 36415; 80076; 84702; 81003; 83690; J7030; J2405; 96361; 96374; 96375; 99284

== ENCOUNTER 2021-08-08 16:01 | Inpatient (IN) | payer BC ==
--- OUTSIDE RECORDS SUMMARY | 2021-08-08 16:04 | XMS REPORT | Continuity of Care Document ---
:1990 Author Organization [facility] t Address [address] [place] [address] Care Team Providers Name Role Phone Unavailable Unavailable Unavailable Payers Payer Name Policy Type Policy Number Effective Date Expiration Date S ource Problems This patient has no known problems. Allergies, Adverse Reactions, Alerts Allergy Allergy Status Severity Reaction(s) Onset Inactive Treating Comm ents Source Name Type Date Date Clinician clindamy DA Active [facility] des 1-20 Clear 00:00: [address] Medications This patient has no known medications. Procedures This patient has no known procedures. Results Test Description Test Time Test Comments Results Result Comments Source GLUCOSE BEDSIDE TESTING 2018-09-02 08:44:00 Test Item Value Reference Range Interpretation Comme nts GLUCOSE BEDSIDE TESTING (test code = GLUBED) 81 mg/dL 70-110 N COMPREHENSIVE METABOLIC [id number] 05:15:00 Test Item Value Reference Range Interpretation [...] 45-117 N TOTAL (test code = ALKP) [id number] 05:15:00 Test Item Value Reference Range Interpretation Comments PHOSPHOROUS (test code = PHOS) 3.2 MG/DL 2.5-4.9 N [id number] 05:15:00 Test Item Value Reference Range Interpretation Comments MAGNESIUM (test code = MAG) 1.8 MG/DL 1.8-2.4 N CBC W/AUTO [id number] 05:09:00 Test Item Value Reference Range Interpretation [...] = NO DIFF/SCN CRITERIA MDIFF) GLUCOSE BEDSIDE [id number] 20:48:00 Test Item Value Reference Range Interpretation Comments GLUCOSE BEDSIDE TESTING (test code 145 mg/dL 70-110 H = GLUBED) GLUCOSE BEDSIDE [id number] 12:21:00 Test Item Value Reference Range Interpretation Comments GLUCOSE BEDSIDE TESTING (test code = 94 mg/dL 70-110 N GLUBED) GLUCOSE BEDSIDE [id number] 08:33:00 Test Item Value Reference Range Interpretation Comments GLUCOSE BEDSIDE TESTING (test code 108 mg/dL 70-110 N = GLUBED) GLYCOSYLATED HEMOGLOBIN [id number] 05:51:00 Test Item Value Reference Range Interpretation Comments GLYCOSYLATED HEMOGLOBIN (HA1C) 5.9 % A1C 4.2-6.3 N (test code = GLYHGB) ESTIMATED AVERAGE GLUCOSE (test 123 MG/DLest code = EAG) CBC W/AUTO [id number] 05:43:00 Test Item Value Reference Range Interpretation [...] CONSISTA NT WITH AUTO DIFFERENTIAL. COMPREHENSIVE METABOLIC [id number] 05:27:00 Test Item Value Reference Range Interpretation [...] = LDL/HDL) 1.83 Ratio 1.48-3.22 Avg N [id number] 05:27:00 Test Item Value Reference Range Interpretation Comments PHOSPHOROUS (test code = PHOS) 2.8 MG/DL 2.5-4.9 N RULE OUT [place] [id number] 05:27:00 Test Item Value Reference Range Interpretation [...] nume rical results may eric yby method. [id number] 05:27:00 Test Item Value Reference Range Interpretation Comments LIPASE (test code = LIP) 109 Unit/L 114-286 L [id number] 05:27:00 Test Item Value Reference Range Interpretation Comments MAGNESIUM (test code = MAG) 2.0 MG/DL 1.8-2.4 N CBC W/AUTO [id number] 05:10:00 Test Item Value Reference Range Interpretation [...]
[2021-08-08] MEDS ORDERED: PROMETHAZINE INJ 25 MG/ML AMP IM PRN (16:29)
[2021-08-08] MEDS ORDERED: Ringers Lactate 1,000 ML IV PRN (16:29)
[2021-08-08] MEDS ORDERED: METHYLERGONOVINE 0.2MG/ML AMP IM PRN (16:29)
[2021-08-08] MEDS ORDERED: CARBOPROST TROME 250 MCG/ML IM PRN (16:29)
[2021-08-08] MEDS ORDERED: Ringers Lactate 1,000 ML IV SCH (17:00)
[2021-08-08 17:09] LABS: Urine Appearance CLOUDY (Clear); Urine Bilirubin NEGATIVE (Negative); Urine Blood NEGATIVE (Negative); Urine Color DK YELLOW (Yellow); Urine Glucose NEGATIVE (Negative); Urine Protein 1+ (Negative); Urine Specific Gravity 1.025 (1.005-1.030); Urine Urobilinogen 0.2 mg/dL (0.2-1.0)
[2021-08-08 17:11] LABS: Hematocrit 33.5 % (36.0-45.0); Lymphocytes % 25.4 % (15.3-44.8); MPV 9.7 fL (7.6-11.3); RBC Red Blood Cell Count 4.05 M/uL (3.86-4.86)
[2021-08-08 17:18] LABS: Urine Microscopic Reflex ORDER UMIC
[2021-08-08 17:27] LABS: Calcium Oxalate Crystals- Ur FEW (NONE SEEN); Urine Bacteria <20 /HPF (<20); Urine Mucus 1+ /HPF (NONE SEEN); Urine RBC NONE SEEN /HPF (NONE SEEN)
[2021-08-08] MEDS ORDERED: PENICILLIN 5 MU in NA CHLORIDE 0.9% 100 ML IV ONE (18:00)
[2021-08-08 18:24] LABS: RPR (Rapid Plasma Reagin) NON-REACT (NON-REACT)
[2021-08-08 19:22] LABS: Urine Appearance CLEAR (Clear); Urine Bilirubin NEGATIVE (Negative); Urine Blood NEGATIVE (Negative); Urine Color YELLOW (Yellow); Urine Glucose NEGATIVE (Negative); Urine Protein NEGATIVE (Negative); Urine Specific Gravity 1.015 (1.005-1.030); Urine Urobilinogen 0.2 mg/dL (0.2-1.0); Urine pH 6.5 (5.0-7.0)
[2021-08-08] MEDS ORDERED: LIDOCAINE 1% MPF 30 ML VIAL ONE (19:23)
[2021-08-08] MEDS: OXYTOCIN/LR 20 UNIT/1,000 ML BAG IV SCH (19:27)
[2021-08-08 19:54] VITALS: BMI 51.9
[2021-08-08 20:04] LABS: Urine Bacteria <20 /HPF (<20); Urine RBC <5 /HPF (NONE SEEN)
--- NOTE | 2021-08-08 21:26 | PREOPHP ---
Date of Admission: 08/08/2021 History: 30-year-old 6, para 5, all girls, at 38 weeks 4 days. Followed antepartum with Dr. Adan, high-insurance risk analyst, [facility]. Diabetic during her . It has been advised by Dr. Adan to deliver between 37 and 39 weeks. The patient is now 38 weeks 4 days. She wished to be delivered at this time. Pros and cons of induction and Cytotec thoroughly discussed . She is 1.5 cm, 50% effaced, vertex still -2 station. FHTs normal, reactive. Vital signs stable. Cytotec 25 mcg placed. We will place another 25 mcg if necessary in 6 hours and then a third dose f ollowing that, but if the first 2 doses are not very effective, we will go to 50 mcg with the third d ose. Complete Labor and Delivery tucks given. Family History: Really is not contributory concerning present medical illness. Allergies: SHE HAS AN ALLERGY TO CLINDAMYCIN. SHE HAD A HISTORY OF STREP WITH MORE THAN 2 OF HER PREGNANCIES AND WISHES TO BE TREATED WITH PENICILL IN DURING THIS LABOR AND DECLINE TESTING DURING THE . I HAVE TO HER WISHES. SHE IS RH POSITIVE, IMMUNE TO RUBELLA. NEGATIVE HIV. NEGATIVE HEPATITIS. Physical Examination: HEENT: Clear. Pupils equal, round, reactive to light and accommodation. Conjunctivae well perfused . No lingual, oral, or buccal lesions. Chest and Lungs: Clear. Heart: Without murmurs. Breasts: Without masses on previous visits. Abdomen: Obese. Extremities: Clear without edema, cyanosis, or clubbing. Pelvis: As stated. Cytotec 25 mcg placed. Anticipate delivery sometime tomorrow. RALPH/NAUN Voice ID: [id number]
[2021-08-08] MEDS: BUTORPHANOL 1 MG/ML INJ IV PRN (21:31)
[2021-08-08] MEDS: miSOPROStoL 100 MCG TAB VAG SCH (22:00)
[2021-08-09] MEDS ORDERED: NA CHLORIDE 0.9% 100 ML ONE ×2 (00:38→04:08)
[2021-08-09] MEDS ORDERED: PENICILLIN G POT 5 MU/VIAL IV ONE (00:38)
[2021-08-09] MEDS: BUTORPHANOL 1 MG/ML INJ IV PRN (01:32)
[2021-08-09] MEDS: PENICILLIN 2.5 MU in NA CHLORIDE 0.9% 100 ML IV SCH ×3 (04:17)
[2021-08-09] MEDS: miSOPROStoL 100 MCG TAB VAG SCH (04:30)
[2021-08-09] MEDS ORDERED: BUPIVACAINE 0.25% PF 10 ML VIAL IJ PRN (07:14)
[2021-08-09] MEDS ORDERED: FENTANYL/BUPIVACAINE/NS/PF 200 MCG/100 ML BAG EP PRN (07:14)
[2021-08-09] MEDS ORDERED: FENTANYL CITR 100 MCG/2 ML IV ONE (07:14)
[2021-08-09] MEDS ORDERED: ROPIVACAINE HCL 0.2% 20ML AMP IV ONE (07:14)
[2021-08-09] MEDS: OXYTOCIN/LR 20 UNIT/1,000 ML BAG IV SCH (07:21)
[2021-08-09] MEDS ORDERED: ROPIVACAINE HCL 100 ML EP ONE (07:33)
--- NOTE | 2021-08-09 07:42 | PN ---
The patient has had 3 doses of Cytotec, but even with 3 doses she is having contractions only every 5 -6 minutes. She has had 2 doses of Stadol, last 1 about 4 a.m. Cervix today is 3 cm, still somewhat posterior, 50% effaced vertex, -1 station, fairly well applied, rupture of membranes clear fluid. F HTs normal. She is getting occasional blood pressures in the 140 range, but protein is negative. Sh sunni has no edema and she has normal reflexes. I do not think she has preeclampsia. Anticipate more ra pid progress. We will start some light Pitocin, start hydration. The patient is requesting epidural , which hopefully will not slow her down but after the hydration we will see where she is and then pr obably proceed with the epidural at her request. RALPH/NAUN Voice ID: [id number] Report ID: [id number]
[2021-08-09] MEDS ORDERED: INFLUENZA VACCINE (for 6+ mo) 0.5 ML DOSE IMVAC ONE (08:00)
[2021-08-09] MEDS ORDERED: BISACODYL 10 MG RECTAL SUPP RC PRN (11:37)
[2021-08-09] MEDS ORDERED: IBUPROFEN 600 MG TAB PO PRN (11:37)
[2021-08-09] MEDS ORDERED: DOCUSATE NA/SENNA CONC 1 TAB PO PRN (11:37)
[2021-08-09] MEDS ORDERED: ACETAMINOPHEN 500 MG TAB PO PRN (11:37)
[2021-08-09] MEDS ORDERED: DIPHENHYDRAMINE 25 MG TAB/CAP PO PRN (11:37)
[2021-08-09] MEDS ORDERED: Oxycodone HCl/Acetaminophen 1 TAB TAB PO PRN (11:37)
[2021-08-09] MEDS ORDERED: OXYTOCIN/LR 20 UNIT/1,000 ML BAG IV SCH (12:00)
[2021-08-09] MEDS: Oxycodone HCl/Acetaminophen 1 TAB TAB PO PRN (15:49)
--- NOTE | 2021-08-09 21:25 | OP ---
Surgeon: Ariel Suarez MD [facility]: This is a 30-year-old, 6, para 5, all females, followed antepartum, in cons ultation with Dr. Adan, high-credit risk manager in [place]. Has been on insulin. History of depressi on prior to this . As per Dr. Adan's suggestion, delivery between 37 and 39 weeks. The p atient was 38 weeks and 4 days. Last night had Cytotec inserted, during the night had 2 more Cytotec inserted, this morning was 3 cm, rupture of membranes. The patient had two 1 mg doses of Stadol, re quested and received epidural anesthesia, at approximately 4 cm. Went rapidly to complete. Second s tage was about 10 minutes. Spontaneous vaginal delivery of an estimated 7-pound plus female infant, Apgars 9 and 9 or 9 and 10. No episiotomy. No laceration. Schultze delivery of the placenta, which was inspected and noted to be intact and normal. Less than 300 cc blood loss. The patient tolerate d all procedures well. She had a history of strep during her other pregnancies, declined testing and wanted treatment. Had at least 2 to 3 doses of penicillin during this labor for prophylaxis. Final Diagnoses: Intrauterine gestation, 38 weeks and 4 days. Insulin-dependent diabetes. Cytotec for cervical ripening, labor induction. Vaginal delivery at 38 weeks and 5 days. Epidural anesthesi a. Penicillin prophylaxis. NBC/MODL Voice ID: [id number] Report ID: [id number]
[2021-08-10] MEDS: Oxycodone HCl/Acetaminophen 1 TAB TAB PO PRN (03:45)
[2021-08-10] MEDS ORDERED: Tdap (Diph,Pertuss(Acell),Tet Vac) 0.5 ML SYR IMVAC ONE (08:04)
--- NOTE | 2021-08-10 08:11 | DS ---
Hospital Course: A 30-year-old 6, para 5, all females with another female, noted to be insul in-dependent diabetic, seen in conjunction with Dr. Adan, high-risk tech, [facility]. Dr. Adan advised delivery between 37 and 39 weeks. The patient was 38 weeks 4 days on admission. Cytotec was used for cervical ripening 25 mcg x3. The next morning at 38 weeks and 5 day s, rupture of membranes was performed. She is 2.5 to 3 cm. During the first stage of labor, receive d two 1 mg doses of Stadol. At approximately 3.5 to 4 cm requested and received epidural anesthesia, which gave good effect during remainder of labor and delivery. Went rapidly to complete very short second stage of 10-15 minutes or less. Spontaneous vaginal delivery of a 7 pound 1 ounce female, Apg ars 9 and 9. No episiotomy. No laceration. Schultze delivery of the placenta, which was inspected and noted to be intact and normal. Less than 100 mL blood loss. The patient received penicillin pro phylaxis during the labor as she had a history of positive strep status with several of her pregnanci es declined testing, but insisted on antibiotic treatment. Dismissed to return to my office in [address] [place] [address] for followup. Requires no analgesics. She is getting some of her immunizations this morning such as a Tdap and flu shot. No post epidural problems. Final Diagnoses: Term intrauterine at 38 weeks 5 days on delivery. Cytotec for cervical r ipening. Vaginal delivery, epidural anesthesia, penicillin prophylaxis. Immunizations being adminis tered. NBC/MODL Voice ID: [id number] Report ID: [id number]
[2021-08-10] MEDS ORDERED: INFLUENZA VACCINE (for 6+ mo) 0.5 ML DOSE IMVAC ONE (11:00)
[2021-08-10 12:05] VITALS: BP 128/78; TEMP 98.6
[2021-08-11 04:47] LABS: HBsAG Nonreactive (Nonreactive)
== END 2021-08-10 14:10 | disposition home or self-care (01) | DRG 807 ==
LOC: 2ND-WC 16:01
PROVIDERS: ADMIT Specialist; ATTEND Specialist
PROC: 3E0P7VZ Introduction of Hormone into Female Reproductive, Via Natural or Artificial Opening (ICD-10-PCS; principal; 2021-08-08)
PROC: 10E0XZZ Delivery of Products of Conception, External Approach (ICD-10-PCS; 2021-08-09)
PROC: 10907ZC Drainage of Amniotic Fluid, Therapeutic from Products of Conception, Via Natural or Artificial Opening (ICD-10-PCS; 2021-08-09)
DX: O24.12 Pre-existing type 2 diabetes mellitus, in childbirth (principal); Z37.0 Single live birth; Z3A.38 38 weeks gestation of pregnancy; Z79.4 Long term (current) use of insulin; O99.824 Streptococcus B carrier state complicating childbirth; Z23 Encounter for immunization
CPT/HCPCS: 36415; 81001; 81003; 81015; 85025; 86592; 86901; 87340; 90471; 90715; G0433; J0595; J2210; J2540; J2550; J2590; J2795; J3010; J7120; Q2035; U0003

== ENCOUNTER 2024-05-14 23:26 | Emergency (ER) | payer OTHER ==
--- OUTSIDE RECORDS SUMMARY | 2024-05-14 23:29 | XMS REPORT | Continuity of Care Document ---
Author Name Unknown Address [address] [facility] [address] [place] [address] [facility] Address [address] [facility] [address] [place] [address] Care Team Providers Care General Clerk Name Role Phone SHAWN BLACKWELL Primary Care Physician Raoula MANE Tapia Attending Clinician Unavaila ble MANE SURESH Attending Clinician Unavaila ble [email or web address]_S Attending Clinician Unavaila ble Doctor Unassigned, [place] Attending Clinician Marlen Singh MA Attending Clinician Unavailabl e Lab, Ang - Db Attending Clinician Unavailable [email or web address]_S Admitting Clinician Unavaila ble Payers Payer Name Policy Type Policy Number Effective Date Expirati on Date Source [facility] [id number] 2018 00:00:00 Problems Condition Name Condition Details Condition Category Status Onset Date Resolution Date Last Treatment Date Treating Clinician Comments Source Galactorrh ea Galactorrh ea Disease Active 10-15 00:00: 00 [facility] Dysmenorrh ea Dysmenorrh ea Disease Active 10-15 00:00: 00 [facility] Irregular menstrual cycle Irregular menstrual cycle Disease Active 10-15 00:00: 00 [facility] BMI 40.0-44.9, adult BMI 40.0-44.9, adult Disease Active 10-15 00:00: 00 [facility] Allergies, Adverse Reactions, Alerts Allergy Name Allergy Type Status Severity Reaction(s) Onset Date Inactive Date Treating Clinician Comments Source CLINDAMY DES DRUG INGREDI Active Unknown-Cmnt 05-04 00:00: 00 [facility] Clindamy des Drug Allergy Active Unknown - See comments 05-04 00:00: 00 [facility] clindamy des DA Active SV 09-01 00:00: 00 [facility] NO KNOWN ALLERGIE S Drug Class Active [facility] Social History Social Habit Start Date Stop Date Quantity Comments Source Gender identity [facility] Sexual orientation U [facility] Alcohol intake 2023-05-14 00:00:00 2023-05-14 00:00:00 Ex-drinker (finding) [facility] History of Social function 2023-05-14 00:00:00 2023-05-14 00:00:00 [facility] Exposure to SARS-CoV-2 (event) 2022-10-01 00:00:00 2022-10-11 12:47:[address] [facility] Tobacco use and exposure 2022-10-11 00:00:00 2022-10-11 00:00:00 Smokeless tobacco non-user [facility] Sex Assigned At 1990 00:00:00 1990 00:00:00 [facility] Smoking Status Start Date Stop Date Source Tobacco smoking consumption unknown [facility] Never smoked tobacco [facility] Medications Ordered Medication Name Filled Medication Name Start Date Stop Date Current Medication? Ordering Clinician Indication Dosage Frequency Signature (SIG) Comments Components Source vit no.130-iron -folic ( VITAMIN) 2022-08 0- 10:18: 53 Yes [facility] ferrous sulfate 325 mg (65 mg iron) tablet 2022-08 0 10:18: 41 Yes Take by mouth. [facility] Diethylprop ion HCl 75 mg TbSR 8-17 00:00: 00 Yes TAKE ONE (1) TABLET(S) BY MOUTH DAILY IN THE MID MORNING. [facility] metFORMIN 1,000 mg tablet 17 00:00: 00 Yes TAKE ONE (1) TABLET(S) BY MOUTH TWICE A DAY WITH A MEAL. [facility] MOUNJARO 15 mg/0.5 mL PnIj 6-13 00:00: 00 Yes INJECT 15 MG SUBCUTANEO USLY WEEKLY. [facility] candesartan 8 mg tablet 5-24 00:00: 00 Yes 8mg Take 1 tablet by mouth in the morning. [facility] MOUNJARO 7.5 mg/0.5 mL PnIj 2-04 00:00: 00 Yes INJECT 7.5 MG INTO SKIN ONCE WEEKLY. [facility] nebivoloL 10 mg tablet 1- 00:00: 00 Yes 10mg Take 1 tablet by mouth in the morning. [facility] candesartan 16 mg tablet 1-25 00:00: 00 Yes 16mg Take 1 tablet by mouth in the morning. [facility] Immunizations Ordered Immunization Name Filled Immunization Name Date Status Comments Source SARS-COV-2 COVID-19 VACCINE - (MODERNA) 2021-07-11 00:00:[address] [facility] SARS-COV-2 COVID-19 VACCINE - (MODERNA) 2020-10-05 00:00:[address] [facility] SARS-COV-2 COVID-19 VACCINE - (MODERNA) 2020-09-07 00:00:[address] [facility] TDAP 2015-12-28 00:00:[address] [facility] TDAP 2015-01-22 00:00:[address] [facility] SARS-COV-2 COVID-19 VACCINE - (MODERNA) Unknown Completed [facility] TDAP Unknown Completed [facility] SARS-COV-2 COVID-19 VACCINE - (MODERNA) Unknown Completed [facility] TDAP Unknown Completed [facility] Vital Signs Vital Name Observation Time Observation Value Comments S ource Systolic blood pressure 2023-05-14 15:17:00 118 mm[Hg] [facility] Diastolic blood pressure 2023-05-14 15:17:00 84 mm[Hg] [facility] Heart rate 2023-05-14 15:17:00 84 /min Unive [facility] Body temperature 2023-05-14 15:17:[address] [facility] Respiratory rate 2023-05-14 15:17:00 18 /min [facility] Body height 2023-05-14 15:17:00 165.1 cm [facility] Body weight 2023-05-14 15:17:00 111.131 kg [facility] BMI 2023-05-14 15:17:00 40.77 kg/m2 [facility] Systolic blood pressure 2022-10-11 19:44:00 131 mm[Hg] [facility] Diastolic blood pressure 2022-10-11 19:44:00 88 mm[Hg] [facility] Heart rate 2022-10-11 19:44:00 81 /[facility] 2022-10-11 19:44:00 18 /min [facility] Body height 2022-10-11 19:44:00 165.1 cm [facility] Body weight 2022-10-11 19:44:00 111.585 kg [facility] BMI 2022-10-11 19:44:00 40.94 kg/m2 [facility] Procedures Procedure Date / Time Performed Performing Clinician Source STERILIZATION CONSENT FORM 2023-05-14 05:01:00 Doctor Unassigned, [place] [facility] ASSIGNMENT OF BENEFITS 2022-10-11 18:49:31 Docto r Unassigned, [place] [facility] Encounters Start Date/Time End Date/Time Encounter Type Admission Type Attending [facility] Care Department Encounter ID Source 2021-09-07 11:40:25 Outpatient [facility] [id number] [facility] 2021-09-07 11:36:39 Outpatient [facility] [id number] [facility] 2023-06-20 00:00:00 2023-06-20 00:00:00 Outpatient MANE CHOE CHERYAL [facility] [id number] [facility] 2023-06-13 00:00:00 2023-06-13 00:00:00 Outpatient [email or web address] diyala_S [facility] [id number] [facility] 2023-05-14 10:30:00 2023-05-14 10:52:50 Outpatient MANE CHOE CHERYAL [facility] [id number] [facility] 2023-05-14 10:30:00 2023-05-14 10:52:50 Office Visit Mane Suresh [facility] [id number] [id number] [id number] [id number] [facility] 2023-05-14 00:00:00 2023-05-14 00:00:00 Orders Only Doctor Unassigned, [place] [facility] 1..840.114 350.1.13.10 [id number] [id number] [facility] 2023-04-13 00:00:00 2023-04-13 00:00:00 Outpatient MANE CHOE CHERYAL [facility] [id number] [facility] 2023-04-11 10:30:00 2023-04-11 10:30:00 Outpatient MANE CHOE CHERYAL [facility] [id number] [facility] 2023-04-09 15:00:00 2023-04-09 15:00:00 Outpatient MANE CHOE CHERYAL [facility] [id number] [facility] 2023-03-28 08:30:00 2023-03-28 08:30:00 Outpatient MANE CHOE [facility] [id number] [facility] 2023-03-21 00:00:00 2023-03-21 00:00:00 Pre Visit Outreach Marlen Dawkins 1..840.114 [id number] [id number] [facility] 2022-10-25 00:00:00 2022-10-25 00:00:00 Outpatient R MANE SURESH [facility] [id number] [facility] 2022-10-12 08:30:00 2022-10-12 08:45:00 Swimming Teacher Visit Lab, Price MolinaMane velazquez [facility] 1..840.114 350.1.13.10 [id number] [id number] [facility] 2022-10-12 08:30:00 2022-10-12 08:30:00 Outpatient R MANE SURESH [facility] [id number] [facility] 2022-10-12 00:00:00 2022-10-12 00:00:00 Letter (Out) Doctor Unassigned, [place] [facility] 1.840.114 350.1.13.10 4.2.7.2.686 [id number] [facility] 2022-10-12 00:00:00 2022-10-12 00:00:00 Letter (Out) Doctor Unassigned, [place] [facility] [id number] 350.1.13.10 [id number] [id number] [facility] 2022-10-11 13:15:00 2022-10-11 14:05:29 Outpatient R MANE SURESH TYSONALIZASALINAMANE MCCLURE [facility] [id number] [facility] 2022-10-11 13:15:00 2022-10-11 14:05:29 Office Visit CourtneysalinaMane mcclure [facility] [id number] 350.1.13.10 [id number] [id number] [facility] 2022-10-11 00:00:00 2022-10-11 00:00:00 Orders Only Doctor Unassigned, [place] [facility] [id number] 350.1.13.10 [id number] [id number] [facility] Results Test Description Test Time Test Comments Results Result Co mments Source COMPREHENSIVE METABOLIC [id number] 05:15:00* Test Item Value Reference Range Interpretation Comme nts SODIUM (test code = NA) 141 mmol/L 134-147 N POTASSIUM (test code = K) 3.8 mmol/L 3.4-5.0 N CHLORIDE (test code = CL) 111 mmol/L 100-108 H CARBON DIOXIDE (test code = CO2) 24 mmol/L 21-32 N ANION GAP (test code = GAP) 6.0 GAP calc 4.0-15.0 N GLUCOSE (test code = GLU) 122 MG/DL 70-110 H BLOOD UREA NITROGEN (test code = BUN) 10 MG/DL 7-18 N GLOMERULAR FILTRATION RATE (test code = GFR) >=60 max estimate estGFR >60 CREATININE (test code = CREAT) 0.7 MG/DL 0.6-1.0 N TOTAL PROTEIN (test code = PROT) 6.1 G/DL 6.4-8.2 L ALBUMIN (test code = ALB) 3.0 G/DL 3.4-5.0 L GLOBULIN (test code = GLOB) 3.1 GM/dL ALBUMIN/GLOBULIN RATIO (test code = A/G) 1.0 RATIO 1.2-2.2 L CALCIUM (test code = CA) 7.6 MG/DL 8.5-10.1 L BILIRUBIN TOTAL (test code = BILT) <0.10 MG/DL 0.2-1.2 L SGOT/AST (test code = AST) 5 Unit/L 15-37 L SGPT/ALT (test code = ALT) 22 Unit/L 12-78 N ALKALINE PHOSPHATASE TOTAL (test code = ALKP) 75 Unit/L 45-117 N [id number] 05:15:00* Test Item Value Reference Range Interpretation Comme nts PHOSPHOROUS (test code = PHOS) 3.2 MG/DL 2.5-4.9 N [id number] 05:15:00* Test Item Value Reference Range Interpretation Comme nts MAGNESIUM (test code = MAG) 1.8 MG/DL 1.8-2.4 N CBC W/AUTO [id number] 05:09:00* Test Item Value Reference Range Interpretation Comme nts WHITE BLOOD CELL (test code = WBC) 10.3 K/mm3 3.5-11.0 N RED BLOOD CELL (test code = RBC) 4.24 M/mm3 4.70-6.10 L HEMOGLOBIN (test code = HGB) 11.7 G/DL 10.4-14.9 N HEMATOCRIT (test code = HCT) 35.8 % 31.5-44.1 N MEAN CELL VOLUME (test code = MCV) 84.4 Fl 84.5-98.6 L MEAN CELL HGB (test code = MCH) 27.6 pg 27.0-34.2 N MEAN CELL HGB CONCETRATION ( test code = MCHC) 32.7 G/DL 31.5-34.0 N RED CELL DISTRIBUTION WIDTH (test code = RDW) 15.8 SD 11.5-14.5 H PLATELET COUNT (test code = PLT) 204.0 K/mm3 150-450 N MEAN PLATELET VOLUME (test c ode = MPV) 10.80 fL 7.0-10.5 H NEUTROPHIL % (test code = NT%) 43.1 [...] K/mm3 0.0-0.1 N MANUAL DIFF REQUIRED (test c ode = MDIFF) NO DIFF/SCN CRITERIA GLUCOSE BEDSIDE [id number] 20:48:00* Test Item Value Reference Range Interpretation Comme nts GLUCOSE BEDSIDE TESTING (michoacano t code = GLUBED) 145 mg/dL 70-110 H GLUCOSE BEDSIDE [id number] 12:21:00* Test Item Value Reference Range Interpretation Comme nts GLUCOSE BEDSIDE TESTING (michoacano t code = GLUBED) 94 mg/dL 70-110 N GLUCOSE BEDSIDE [id number] 08:33:00* Test Item Value Reference Range Interpretation Comme nts GLUCOSE BEDSIDE TESTING (michoacano t code = GLUBED) 108 mg/dL 70-110 N GLYCOSYLATED HEMOGLOBIN [id number] 05:51:00* Test Item Value Reference Range Interpretation Comme nts GLYCOSYLATED HEMOGLOBIN (HA1 C) (test code = GLYHGB) 5.9 % A1C 4.2-6.3 N ESTIMATED AVERAGE GLUCOSE (t est code = EAG) 123 MG/DLest CBC W/AUTO [id number] 05:43:00* Test Item Value Reference Range Interpretation Comme nts WHITE BLOOD CELL (test code = WBC) 14.6 K/mm3 3.5-11.0 H RED BLOOD CELL (test code = RBC) 4.37 M/mm3 4.70-6.10 L HEMOGLOBIN (test code = HGB) 12.4 G/DL 10.4-14.9 N HEMATOCRIT (test code = HCT) 36.4 % 31.5-44.1 N MEAN CELL VOLUME (test code = MCV) 83.3 Fl 84.5-98.6 L MEAN CELL HGB (test code = MCH) 28.4 pg 27.0-34.2 N MEAN CELL HGB CONCETRATION (test code = MCHC) 34.1 G/DL 31.5-34.0 H RED CELL DISTRIBUTION WIDTH (test code = RDW) 15.1 SD 11.5-14.5 H PLATELET COUNT (test code = PLT) 254.0 K/mm3 150-450 N MEAN PLATELET VOLUME (test code = MPV) 10.70 fL 7.0-10.5 H NEUTROPHIL % (test code = NT%) 78.1 [...] N MANUAL DIFF REQUIRED (test code = MDIFF) NO DIFF/SCN CRITERIA SLIDE REVIEW CONSISTANT WITH AUTO DIFFERENTIAL. COMPREHENSIVE METABOLIC [id number] 05:27:00* Test Item Value Reference Range Interpretation Comme nts SODIUM (test code = NA) 142 mmol/L 134-147 N POTASSIUM (test code = K) 4.0 mmol/L 3.4-5.0 N CHLORIDE (test code = CL) 110 mmol/L 100-108 H CARBON DIOXIDE (test code = CO2) 22 mmol/L 21-32 N ANION GAP (test code = GAP) 10.0 GAP calc 4.0-15.0 N GLUCOSE (test code = GLU) 143 MG/DL 70-110 H BLOOD UREA NITROGEN (test code = BUN) 7 MG/DL 7-18 N GLOMERULAR FILTRATION RATE (test code = GFR) >=60 max estimate estGFR >60 CREATININE (test code = CREAT) 0.7 MG/DL 0.6-1.0 N TOTAL PROTEIN (test code = PROT) 6.7 G/DL 6.4-8.2 N ALBUMIN (test code = ALB) 3.2 G/DL 3.4-5.0 L GLOBULIN (test code = GLOB) 3.5 GM/dL ALBUMIN/GLOBULIN RATIO (test code = A/G) 0.9 RATIO 1.2-2.2 L CALCIUM (test code = CA) 7.9 MG/DL 8.5-10.1 L BILIRUBIN TOTAL (test code = BILT) 0.20 MG/DL 0.2-1.2 N SGOT/AST (test code = AST) 8 Unit/L 15-37 L SGPT/ALT (test code = ALT) 29 Unit/L 12-78 N ALKALINE PHOSPHATASE TOTAL (test code = ALKP) 81 Unit/L 45-117 N LIPID PROFILE (CORONARY RISK)2018 05:27:00* Test Item Value Reference Range Interpretation Comme nts TRIGLYCERIDES (test code = TRIG) 89 MG/DL 0-150 N CHOLESTEROL (test code = CHOL) 147 MG/DL 133-200 N CHOLESTEROL/HDL RATIO (test code = CHOLHDL) 3.00 RATIO >0 HDL CHOLESTEROL (test code = HDL) 49 MG/DL 40-59 N NON-HDL CHOLESTEROL (test co de = NHDL) 98 mg/dL <130 LIPOPROTEIN LDL (test code = LDL) 90 MG/DL 0-129 N LDL/HDL (test code = LDL/HDL) 1.83 Ratio 1.48-3.22 Avg N [id number] 05:27:00* Test Item Value Reference Range Interpretation Comme nts PHOSPHOROUS (test code = PHOS) 2.8 MG/DL 2.5-4.9 N RULE OUT ID [id number] 05:27:00* Test Item Value Reference Range Interpretation Comme nts CREATINE KINASE (CK) (test code = CK) 49 Unit/L 26-192 N TROPONIN-I (test code = TROPI) < 0.015 NG/ML 0.000-0.045 N Negative: </= 0. 045 Positive: >/= 0.046 Correlation with serial results, other cardiac markers, and clinical findings is necessary to determine the clinical significance of this result. Quantitative results using different methodologies should not be compared to one another as numerical results may varyby method. [id number] 05:27:00* Test Item Value Reference Range Interpretation Comme nts LIPASE (test code = LIP) 109 Unit/L 114-286 L [id number] 05:27:00* Test Item Value Reference Range Interpretation Comme nts MAGNESIUM (test code = MAG) 2.0 MG/DL 1.8-2.4 N CBC W/AUTO [id number] 05:10:00* Test Item Value Reference Range Interpretation Comme nts WHITE BLOOD CELL (test code = WBC) 14.6 K/mm3 3.5-11.0 H RED BLOOD CELL (test code = RBC) 4.37 M/mm3 4.70-6.10 L HEMOGLOBIN (test code = HGB) 12.4 G/DL 10.4-14.9 N HEMATOCRIT (test code = HCT) 36.4 % 31.5-44.1 N MEAN CELL VOLUME (test code = MCV) 83.3 Fl 84.5-98.6 L MEAN CELL HGB (test code = MCH) 28.4 pg 27.0-34.2 N MEAN CELL HGB CONCETRATION ( test code = MCHC) 34.1 G/DL 31.5-34.0 H RED CELL DISTRIBUTION WIDTH (test code = RDW) 15.1 SD 11.5-14.5 H PLATELET COUNT (test code = PLT) 254.0 K/mm3 150-450 N MEAN PLATELET VOLUME (test c ode = MPV) 10.70 fL 7.0-10.5 H NEUTROPHIL % (test code = NT%) 78.1 [...] K/mm3 0.0-0.1 N MANUAL DIFF REQUIRED (test c ode = MDIFF) DIFF/SCN CRITERIA Notes Date/Time Note Provider Source 2023-03-21 08:41:33 Summary: Pre-Visit O [facility], [facility], and Care Everywhere searched for patient records.Information reconciled into the patients chart. [employer] Message sent to patient with open care gaps. Medical release form sent to patient via [employer] in an attempt to obtain outside records. T [facility] 2018-09-02 10:13:00 [facility] Discharge Summary REPORT#:[id number] REPORT STATUS: Signed DATE:09/02/18 TIME:1013 PATIENT: VIVIANA WORKMAN UNIT #: [id number] ROOM/BED: [place] [id number] : [birth year] AGE: 28 SEX: F ATTEND: Paul Ellis MD ADM AUTHOR: Paul Ellis MD * ALL edits or amendments must be made on the electronic/computer document * PCP PCP Discharge to: home General Information Date of discharge: 09/02/18 Hospital course: Strep pharyngitis Sinus tachycardia Probable allergic reaction to clindamycin HPI 28-year-old female with no significant past medical history sent from outside ER where he presented with strep pharyngitis and was started on Augmentin 1 week ago with no response and was seen in the ER , was started on steroids and clindamycin, following which the patient had an episode of tachycardia and short of breath and was sent over here for further management Course Monitored under telemetry. Started on IV hydration ,Started on small dose of beta-leonela while in hospital , along with IV antibiotics She responded well to the treatment and is being discharged home today in stable condition with and advised to follow-up with PCP in 1 week time Med Rec Med Rec Discharge meds: Start taking the following new medications: CEFUROXIME AXETIL (CEFTIN) 500 MG TAB 500 MILLIGRAM ORAL TWICE DAILY. Qty = 10 No Refills AZITHROMYCIN (ZITHROMAX) 250 MG TAB 250 MILLIGRAM ORAL DAILY. Qty = 4 No Refills Discharge Instructions Diet: cardiac Activity: as tolerated Discharge management: greater than 30 mins Follow-up Appointments PCP: PCP: Shawn Blackwell MD Follow up timeframe: In 1-2 weeks Objective VS/I O Last Documented: Result Date Time Pulse Ox 98 09/02 0755 B/P 101/69 09/02 0755 B/P Mean 79.9 09/02 0755 Temp 98.1 09/02 0755 Pulse 69 09/02 0755 Resp 20 09/02 0755 General appearance: alert, awake, oriented HEENT : normocephalic ,Atraumatic Eyes: Eyes normal inspection. ENT: Dry mucous membranes present. Neck: Normal inspection. Neck supple. CVS: Normal heart rate and rhythm. Heart sounds normal. Respiratory: No respiratory distress. Breath sounds normal. Abdomen: Soft and nontender. Back: Normal inspection. at 1919 RPT #: [id number] END OF REPORT [facility] 2018 10:44:00 [facility] History Physical - Adult REPORT#:[id number] REPORT STATUS: Signed DATE:09/01/18 TIME:1044 PATIENT: VIVIANA WORKMAN UNIT #: [id number] ROOM/BED: [place] [id number] : 88 AGE: 28 SEX: F ATTEND: Paul Ellis MD ADM AUTHOR: Paul Ellis MD * ALL edits or amendments must be made on the electronic/computer document * History of Present Illness HPI Chief complaint: Tachycardia sore throat HPI: 28-year-old female with no significant past medical history sent from outside ER where he presented with strep pharyngitis and was started on Augmentin 1 week ago with no response and was seen in the ER , was started on steroids and clindamycin, following which the patient had an episode of tachycardia and short of breath and was sent over here for further management History Additional medical history: Significant past medical history Past surgical history: Reports: . Family history: Reports: Hypertension. Smoking status for patients 13 years old or older: Never Smoker Medication/Allergy-Vaccine Hx Allergies: Coded Allergies: clindamycin (Severe, TACHYCARDIA 09/01/18) Review of Systems Additional notes: All the 14 point review of systems negative except for those mentioned in HPI Physical Exam VS/I O Vital Signs: Temp Pulse Resp B/P B/P Pulse O2 O2 Flow FiO2 Mean Ox Delivery Rate 98.1 69 20 101/69 79.9 98 98.2 67 12 105/70 81.7 98 98.1 73 12 93/62 72.2 97 98.1 81 14 113/77 89.0 99 General appearance: alert, awake, oriented HEENT : normocephalic ,Atraumatic Eyes: Eyes normal inspection. ENT: Pharyngeal congestion Neck: Normal inspection. Neck supple. CVS: Tachycardia, . Heart sounds normal. Respiratory: No respiratory distress. Breath sounds normal. Abdomen: Soft and nontender. Back: Normal inspection. Skin: Skin warm. Normal skin color. No rash. Extremities: No lower extremity edema. Neuro: Oriented X 3. No motor deficit No generalized lymph adenopathy Psych normal affect Diagnosis, Assessment Plan Free Text A P: Strep pharyngitis Sinus tachycardia Probable allergic reaction to clindamycin Plan Monitor under telemetry IV hydration Start on small dose of beta-leonela while in hospital IV antibiotics Pain control GI/DVT prophylaxis at 1917 RPT #: [id number] END OF REPORT [facility]
[2024-05-15 00:39] LABS: Absolute Eosinophils 0.2 K/uL (0-0.5); Absolute Lymphocytes (CBC) 3.7 K/uL (0.7-4.9); Absolute Monocytes 0.6 K/uL (0.1-1.3); Absolute Neutrophil 4.5 K/uL (1.8-8.0); Basophils % 0.5 % (0-1.3); Eosinophils % 2.4 % (0-4.4); Hemoglobin 12.4 g/dL (12.0-15.0); Lymphocytes % 40.5 % (15.3-44.8); MCH 27.4 pg (27.0-35.0); MCHC 32.7 g/dL (32.0-36.0); MCV 83.8 fL (80-100); MPV 9.4 fL (7.6-11.3); Monocytes % 6.9 % (3.3-12.3); Neutrophils % 49.7 % (41.7-73.7); Platelets 213 thou/uL (152-406); RBC Red Blood Cell Count 4.53 M/uL (3.86-4.86); Red Cell Distribution Width 15.6 % (12.1-15.2)
[2024-05-15 00:55] LABS: Anion Gap 5.8 mEq/L (5.0-15.0); BUN Blood Urea Nitrogen 9 mg/dL (7-18); Bicarbonate 28 mEq/L (21-32); Glomerular Filtration Rate 98 ml/min (=/>90); Glucose Level 140 mg/dL (74-106); Potassium 3.8 mEq/L (3.5-5.1); Sodium Level 137 mEq/L (136-145)
[2024-05-15 01:01] LABS: Troponin High Sensitivity < 3.0 pg/mL (<58.9)
--- NOTE | 2024-05-15 01:11 | ER ---
Nurse's Notes [facility] Name: Rasheeda Wilburn Age: 33 yrs Sex: Female : 1990 Arrival Date: 05/14/2024 Time: 23:26 Bed 8 Private MD: Diagnosis: Paresthesia of skin Presentation: 05/14 23:38 Chief complaint: Patient states: left shoulder pain radiating to arm and fingers since lg3 this morning. started new BP med 2 weeks ago and new dosage change. Coronavirus screen: Client denies travel out of the [place] in the last 14 days. At this time, the client does not indicate any symptoms associated with coronavirus-19. Ebola Screen: No symptoms or risks identified at this time. Initial Sepsis Screen: Does the patient meet any 2 criteria? No. Patient's initial sepsis screen is negative. Does the patient have a suspected source of infection? No. Patient's initial sepsis screen is negative. Risk Assessment: Do you want to hurt yourself or someone else? Patient reports no desire to harm self or others. Onset of symptoms was May 14, 2024. 23:38 Method Of Arrival: Ambulatory lg3 23:38 Acuity: MAZIN 4 lg3 Triage Assessment: 23:41 General: Appears in no apparent distress. comfortable, Behavior is calm, cooperative. lg3 Pain: Complains of pain in left arm Pain does not radiate. Pain currently is 5 out of 10 on a pain scale. EENT: No deficits noted. No signs and/or symptoms were reported regarding the EENT system. Neuro: No deficits noted. Rodriguez Agitation-Sedation Scale (RASS): 0 - Alert and Calm Level of Consciousness is awake, alert, obeys commands, Oriented to person, place, time, situation. Cardiovascular: No deficits noted. Denies chest pain, shortness of breath, Capillary refill < 3 seconds Clubbing of nail beds is absent JVD is absent Patient's skin is warm and dry. Respiratory: No deficits noted. Airway is patent Respiratory effort is even, unlabored, Respiratory pattern is regular, symmetrical. GI: No deficits noted. No signs and/or symptoms were reported involving the gastrointestinal system. : No deficits noted. No signs and/or symptoms were reported regarding the genitourinary system. Derm: No deficits noted. No signs and/or symptoms reported regarding the dermatologic system. Skin is intact, is healthy with good turgor, Skin is dry, Skin is normal, Skin temperature is warm. Musculoskeletal: Circulation, motion, and sensation intact. Range of motion: intact in all extremities, Reports pain in left arm. 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 - Infectious Disease History:: Denies. - Social history:: Smoking status: Patient denies any tobacco usage or history of. Patient/guardian denies using alcohol, street drugs. Screenin:55 [facility] ED Fall Risk Assessment (Adult) History of falling in the last 3 months, kj2 including since admission No falls in past 3 months (0 pts) Confusion or Disorientation No (0 pts) Intoxicated or Sedated No (0 pts) Impaired Gait No (0 pts) Mobility Assist Device Used No (0 pt) Altered Elimination No (0 pt) Score/Fall Risk Level 0 - 2 = Low Risk Maintained a safe environment, Educated pt \T\ family on fall prevention, incl call for assistance when getting out of bed, Hourly rounding (assess needs \T\ fall precautionary measures) done. Abuse screen: Denies threats or abuse. Denies injuries from another. Nutritional screening: No deficits noted. Tuberculosis screening: No symptoms or risk factors identified. Assessment: 23:55 General: Appears in no apparent distress. Behavior is calm, cooperative. Pain: kj2 Complains of pain in left arm Pain currently is 5 out of 10 on a pain scale. Neuro: Level of Consciousness is awake, alert, obeys commands, Oriented to person, place, time, situation. Cardiovascular: Patient's skin is warm and dry. Respiratory: Airway is patent Respiratory effort is even, unlabored. GI: No signs and/or symptoms were reported involving the gastrointestinal system. : No signs and/or symptoms were reported regarding the genitourinary system. 05/15 00:42 Reassessment: Patient appears in no apparent distress at this time. Patient and/or kj2 family updated on plan of care and expected duration. Pain level reassessed. Patient is alert, oriented x 3, equal unlabored respirations, skin warm/dry/pink. 01:09 Reassessment: Patient appears in no apparent distress at this time. Patient and/or kj2 family updated on plan of care and expected duration. Pain level reassessed. Patient is alert, oriented x 3, equal unlabored respirations, skin warm/dry/pink. Vital Signs: 05/14 23:38 BP 147 / 94; Pulse 80; Resp 17 S; Temp 98.1(O); Pulse Ox 100% on R/A; Weight 125.19 kg lg3 (R); Height 5 ft. 0 in. (R); Pain 5/10; 23:55 BP 143 / 86; Pulse 68; Resp 18; Pulse Ox 98% on R/A; Weight 125.19 kg; Height 5 ft. 0 kj2 in. ; 05/15 01:08 BP 123 / 66 LA; Pulse 77; Resp 18; Pulse Ox 97% on R/A; kj2 01:13 BP 130 / 98 RA; Pulse 75; Resp 20; Temp 97.9; Pulse Ox 98% on R/A; kj2 05/14 23:55 Body Mass Index 53.90 (125.19 kg, 152.4 cm) kj2 05/14 23:38 Pain Scale: Adult lg3 ED Course: 05/14 23:28 Patient arrived in ED. mr 23:34 Francis Angeles MD is Attending Physician. sp3 23:41 Triage completed. lg3 23:41 Arm band placed on right wrist. lg3 23:55 Patient has correct armband on for positive identification. Bed in low position. Call kj2 light in reach. Adult w/ patient. Provided Education on: CALL LIGHT. 23:59 Jyotsna Bruce is Primary Nurse. cp4 05/15 00:15 CXR XRAY In Process Unspecified. EDMS 00:31 Basic Metabolic Panel Sent. kj2 00:31 CBC with Diff Sent. kj2 00:31 Troponin HS Sent. kj2 00:31 Inserted saline lock: 20 gauge in right antecubital area, using aseptic technique. kj2 Blood collected. Flushed with 10 mL NS. 00:44 No provider procedures requiring assistance completed. kj2 01:17 IV discontinued, intact, bleeding controlled, No redness/swelling at site. Pressure kj2 dressing applied. Administered Medications: No medications were administered Medication: 00:44 VIS not applicable for this client. kj2 Outcome: 01:10 Discharge ordered by . sp3 01:15 Condition: stable kj2 01:17 Discharged to home ambulatory, with family, kj2 01:17 Discharge instructions given to patient, Instructed on discharge instructions, follow up and referral plans. Demonstrated understanding of instructions, follow-up care, 01:25 Patient left the ED. kj2 Signatures: Dispatcher [employer] EDMS MortonPaulette, Reg Reg mr Jennie Chaidez, RN RN lg3 Francis Angeles MD MD sp3 Jyotsna Bruce cp4 Joycelyn Salinas, RN RN kj2 Corrections: (The following items were deleted from the chart) 01:15 01:08 BP 123 / 66; Pulse 77bpm; Resp 18bpm; Pulse Ox 97% RA; kj2 kj2
--- NOTE | 2024-05-15 01:11 | EDPHYS ---
Physician Documentation [facility] Name: Rasheeda Wilburn Age: 33 yrs Sex: Female : 1990 Arrival Date: 05/14/2024 Time: 23:26 Bed 8 Private MD: ED Physician Francis Angeles HPI: 05/15 00:14 This 33 yrs old Female presents to ER via Ambulatory with complaints of Arm Pain. sp3 00:14 . sp3 00:18 33-year-old female with history of hypertension, PCOS presents to the ED with chief sp3 complaint left elbow pain causing numbness in her fourth and fifth finger that she thinks is from overuse syndrome from dealing with 6 children at home she says. She denies any chest pain, shortness of breath, left shoulder pain, left neck pain, back pain or any other concerning signs or symptoms on ROS at this time. She denies fever abdominal pain, vomiting, diarrhea, or any other symptoms. She called her PCP who told her to come in for evaluation.. 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 - Infectious Disease History:: Denies. - Social history:: Smoking status: Patient denies any tobacco usage or history of. Patient/guardian denies using alcohol, street drugs. ROS: 05/15 00:19 Constitutional: Negative for fever, chills, and weight loss, Eyes: Negative for injury, sp3 pain, redness, and discharge, Neck: Negative for injury, pain, and swelling, Cardiovascular: Negative for chest pain, palpitations, and edema, Respiratory: Negative for shortness of breath, cough, wheezing, and pleuritic chest pain, Abdomen/GI: Negative for abdominal pain, nausea, vomiting, diarrhea, and constipation, Back: Negative for injury and pain, Skin: Negative for injury, rash, and discoloration, Neuro: Negative for headache, weakness, numbness, tingling, and seizure, Psych: Negative for depression, anxiety, suicide ideation, homicidal ideation, and hallucinations, Allergy/Immunology: Negative for hives, rash, and allergies, Endocrine: Negative for neck swelling, polydipsia, polyuria, polyphagia, and marked weight changes, Hematologic/Lymphatic: Negative for swollen nodes, abnormal bleeding, and unusual bruising, All other systems are negative, Exam: 00:19 Constitutional: This is a well developed, well nourished patient who is awake, alert, sp3 and in no acute distress. Head/Face: Normocephalic, atraumatic. Eyes: Pupils equal round and reactive to light, extra-ocular motions intact. Lids and lashes normal. Conjunctiva and sclera are non-icteric and not injected. Cornea within normal limits. Periorbital areas with no swelling, redness, or edema. ENT: Nares patent. No nasal discharge, no septal abnormalities noted. External auditory canals are clear. Oropharynx with no redness, swelling, or masses, exudates, or evidence of obstruction, uvula midline. Mucous membranes moist. Neck: Trachea midline, no thyromegaly or masses palpated, and no cervical lymphadenopathy. Supple, full range of motion without nuchal rigidity, or vertebral point tenderness. No Meningismus. Chest/axilla: Normal chest wall appearance and motion. Nontender with no deformity. No lesions are appreciated. Cardiovascular: Regular rate and rhythm with a normal S1 and S2. No gallops, murmurs, or rubs. Normal PMI, no JVD. No pulse deficits. Respiratory: Lungs have equal breath sounds bilaterally, clear to auscultation and percussion. No rales, rhonchi or wheezes noted. No increased work of breathing, no retractions or nasal flaring. Abdomen/GI: Soft, non-tender, with normal bowel sounds. No distension or tympany. No guarding or rebound. No evidence of tenderness throughout. Back: No spinal tenderness. No costovertebral tenderness. Full range of motion. Skin: Warm, dry with normal turgor. Normal color with no rashes, no lesions, and no evidence of cellulitis. MS/ Extremity: Pulses equal, no cyanosis. Neurovascular intact. Full, normal range of motion. Neuro: Awake and alert, GCS 15, oriented to person, place, time, and situation. Cranial nerves II-XII grossly intact. Motor strength 5/5 in all extremities. Sensory grossly intact. Cerebellar exam normal. Normal gait. Psych: Awake, alert, with orientation to person, place and time. Behavior, mood, and affect are within normal limits. 00:56 ECG was reviewed by the Attending Physician. EKG demonstrates normal sinus rhythm at 73 sp3 bpm with normal intervals, normal QRS, normal axis, normal ST's ST segments without evidence of acute ischemia. Vital Signs: 05/14 23:38 BP 147 / 94; Pulse 80; Resp 17 S; Temp 98.1(O); Pulse Ox 100% on R/A; Weight 125.19 kg lg3 (R); Height 5 ft. 0 in. (R); Pain 5/10; 23:55 BP 143 / 86; Pulse 68; Resp 18; Pulse Ox 98% on R/A; Weight 125.19 kg; Height 5 ft. 0 kj2 in. ; 05/15 01:08 BP 123 / 66 LA; Pulse 77; Resp 18; Pulse Ox 97% on R/A; kj2 01:13 BP 130 / 98 RA; Pulse 75; Resp 20; Temp 97.9; Pulse Ox 98% on R/A; kj2 05/14 23:55 Body Mass Index 53.90 (125.19 kg, 152.4 cm) kj2 05/14 23:38 Pain Scale: Adult lg3 MDM: 05/14 23:49 Patient medically screened. sp3 05/15 00:20 Data reviewed: vital signs, nurses notes, lab test result(s), EKG, radiologic studies. sp3 ED course: 33-year-old female with left elbow pain with likely radial nerve paresthesia and inflammation in the elbow. I met highly concerned about acute coronary syndrome, aortic pathology, PE, pneumonia or any other concerning findings. Workup will include EKG, chest x-ray and laboratory values including troponin. If workup negative we will safely discharge patient home. Symptoms were going on for greater than 2 days.. 01:08 ED course: Full workup negative including EKG, chest x-ray and laboratory values. We sp3 will suggest the patient home at this time.. 05/15 00:00 Order name: Basic Metabolic Panel; Complete Time: 01:01 sp3 05/15 00:00 Order name: CBC with Diff; Complete Time: 00:51 sp3 05/15 00:00 Order name: Troponin HS; Complete Time: 01:01 sp3 05/14 23:51 Order name: CXR XRAY lg3 05/14 23:51 Order name: EKG; Complete Time: 23:52 lg3 05/14 23:51 Order name: Bilateral blood pressure; Complete Time: 01:15 lg3 05/15 00:00 Order name: Cardiac monitoring; Complete Time: 01:07 sp3 05/15 00:00 Order name: EKG - Nurse/Tech; Complete Time: 01:08 sp3 05/15 00:00 Order name: IV Saline Lock; Complete Time: 00:31 sp3 05/15 00:00 Order name: Labs collected and sent; Complete Time: 00:31 sp3 05/15 00:00 Order name: O2 Sat Monitoring; Complete Time: 01:08 sp3 Administered Medications: No medications were administered Disposition Summary: 05/15/24 01:10 Discharge Ordered Notes: Location: Home sp3 Condition: Stable sp3 Diagnosis - Paresthesia of skin sp3 Followup: sp3 - With: Private Physician - When: Upon discharge from the Emergency Department - Reason: Continuance of care Discharge Instructions: - Discharge Summary Sheet sp3 - Paresthesia sp3 Forms: - Medication Reconciliation Form sp3 - Antibiotic Education sp3 - Prescription Opioid Use sp3 - Patient Portal Instructions sp3 - Leadership Thank You Letter sp3 Signatures: Dispatcher [employer] Jennie Christina RN RN lg3 Francis Angeles MD MD sp3 Corrections: (The following items were deleted from the chart) 00:00 00:00 BASIC METABOLIC PANEL+C.LAB.BRZ ordered. EDMS EDMS 00:00 00:00 CBC+H.LAB.BRZ ordered. EDMS EDMS 00:00 00:00 Troponin High Sensitivity+C.LAB.BRZ ordered. EDMS EDMS
--- NOTE | 2024-05-15 06:04 | RAD REPORT ---
EXAM: Chest Single View CLINICAL INDICATION: 33-year-old female with pain. TECHNIQUE: Single view, AP portable chest was obtained. COMPARISON: None. FINDINGS: Unremarkable cardiac and mediastinal silhouette. Heart size is normal. Low lung volumes without focal opacity, pneumothorax or pleural effusions. The visualized bones are within normal limits. IMPRESSION: No acute pulmonary abnormalities. Electronically signed by: Blanka Servin MD 05/15/2024 12:51 AM CDT RP Due to temporary technical issues with the PACS/[employer] reporting system, reports are being marcel d by the in-house radiologist without review as a courtesy to ensure prompt reporting the interpreting radiologist is fully responsible for the content of the report. Transcribed Date/Time: 05/15/2024 6:03 AM
[2024-05-15 18:03] VITALS: BP 130/98; TEMP 97.9; O2SAT 98
--- NOTE | 2024-05-16 16:38 | EKG ---
Test Date: 2024-05-15 Test Time: 00:50:02 Power House Engineer: KELLI MEASUREMENT RESULTS: Intervals: Rate: 73 SD: 158 QRSD: 82 QT: 394 QTc: 434 [place]: P: 35 SD: 158 QRS: 51 T: 45 INTERPRETIVE STATEMENTS: Normal sinus rhythm Cannot rule out Anterior infarct, age undetermined Abnormal ECG Compared to ECG 11/26/2015 12:33:54 Sinus tachycardia no longer present Myocardial infarct finding still present Electronically Signed On 05-16-24 16:33:45 CDT by Brian Kramer
== END 2024-05-15 01:25 | disposition home or self-care (01) ==
LOC: ER 23:26
DX: R20.2 Paresthesia of skin (principal); M25.522 Pain in left elbow; I10 Essential (primary) hypertension
CPT/HCPCS: 36415; 71045; 80048; 84484; 85025; 93005; 99284